=== PATIENT | female | born 1965 | race Caucasian/White ===

== ENCOUNTER 2018-02-13 13:14 | Observation (INO) ==
--- NOTE | 2018-02-13 13:34 | Emergency Department Note ---
ED Disposition Clinical Impression: Nausea vomiting and diarrhea, Ulcerative esophagitis, Coronary artery disease, Intractable vomiting, Hematemesis with nausea Disposition: Still a Patient Condition on Discharge: Fair Instructions: DI for Diarrhea and Traveler's Diarrhea -- Adult, DI for Diarrhea and Traveler's Diarrhea -- Child, DI for Nausea -- Adult, DI for Nausea -- Child Referrals: Provider,Referral, MD [Primary Care Provider] - - Critical Care Critical Care Time: No Attestation: On 02/13/18, the high probability of a clinically significant, sudden or life threatening deterioration of the following system(s) required my full and direct attention, intervention and personal management. The time I documented below is in addition to time spent performing reported procedures but includes the following listed in this critical care notation. Medical Decision Making - Fredrick Inquiry Pt receiving controlled substance: No Fredrick was queried for this patient: No Vital Signs: 02/13/18 13:18 02/13/18 15:12 Temperature 100 F H Temperature Source Oral Pulse Rate [Right Radial] 103 H 100 H Respiratory Rate 18 Blood Pressure [Right Arm] 112/90 117/68 Blood Pressure Mean [Right Arm] 97 84 Blood Pressure Source [Right Arm] Automatic Cuff Automatic Cuff Blood Pressure Position [Right Arm] Sitting Sitting 02 Sat by Pulse Oximetry 96 95 Oxygen Delivery Method Room Air Room Air - Lab Data Lab Results 02/13/18 13:24: WBC 11.9 H, RBC 5.36, Hgb 14.3, Hct 45.2, MCV 84.3, MCH 26.7 L, MCHC 31.7 L, RDW 14.2, Plt Count 378, MPV 6.5 L, Neut % (Auto) 84.6 H, Lymph % (Auto) 7.5 L, [place] % (Auto) 3.8, Eos % (Auto) 3.7, Baso % (Auto) 0.4, Neut # (A uto) 10.0 H, Lymph # (Auto) 0.9, [place] # (Auto) 0.5, Eos # (Auto) 0.4, Baso # (Auto) 0.1 02/13/18 13:24: PT 10.0, INR 0.97, APTT 25.6 02/13/18 13:24: Sodium 141, Potassium 3.7, Chloride 104, Carbon Dioxide 27, Anion Gap 13.7, BUN 17, Creatinine 1.03 H, Estimated Creat Clear 68, Estimated GFR 57 L, Est GFR ( Amer) 69, Glucose 119 H, Calcium 8.5, Total Bilirubin 0.6, AST 15, ALT 44, Alkaline Phosphatase 94, Total Protein 7.0, Albumin 3.3 L, Globulin 3.7 H, Albumin/Globulin Ratio 0.9 L Result diagrams: 02/13/18 13:24 02/13/18 13:24 Orders (Tests/Meds): ED MEDICATIONS Generic Name Dose Route Start Last Admin Trade Name Freq PRN Reason Stop Dose Admin Sodium Chloride 1,000 mls @ 999 mls/hr 02/13/18 13:30 02/13/18 14:14 Sod Chlor 0.9% 1000ml Bag IV 02/13/18 14:30 999 mls/hr .Q1H1M LOLIS Administration Pantoprazole Sodium 80 mg/ 100 mls @ 10 mls/hr 02/13/18 15:00 Sodium Chloride IV 02/16/18 14:59 .Q10H LOLIS Discontinued Medications Generic Name Dose Route Start Last Admin Trade Name Freq PRN Reason Stop Dose Admin Diatrizoate Meglum/Diatrizoate Sod 30 ml 02/13/18 13:26 02/13/18 13:37 Gastrografin 66%-10% 30ml PO 02/13/18 13:27 30 ml ONCE ONE Administration Famotidine 20 mg 02/13/18 13:28 02/13/18 14:13 Pepcid 20mg/2ml Vial IV 02/13/18 13:29 20 mg ONCE ONE Administration Pantoprazole Sodium 80 mg/ 100 mls @ 10 mls/hr 02/13/18 14:28 02/13/18 14:12 Sodium Chloride IV 02/16/18 14:27 10 mls/hr .Q10H LOLIS Administration Pantoprazole Sodium 80 mg/ 100 mls @ 100 mls/hr 02/13/18 13:28 02/13/18 14:48 Sodium Chloride IV 02/13/18 14:27 100 mls/hr ONCE ONE Administration Iopamidol 75 ml 02/13/18 13:55 02/13/18 14:01 [id number]; 75ml Vial IV 02/13/18 13:56 75 ml ONCE ONE Administration Protocol Ondansetron HCl 4 mg 02/13/18 13:28 02/13/18 14:13 Zofran 4mg/2ml Vial IV 02/13/18 13:29 4 mg ONCE ONE Administration Promethazine HCl 12.5 mg 02/13/18 14:42 Phenergan 25mg/Ml 1ml Vial IV 02/13/18 14:43 ONCE ONE Sodium Chloride 10 ml 02/13/18 13:55 02/13/18 14:01 Rad-Saline Flush 10ml Syringe IV 02/13/18 13:56 10 ml ONCE ONE Administration Sodium Chloride 25 ml 02/13/18 14:42 Sod Chlor 0.9% 25ml Bag IV 02/13/18 14:43 ONCE ONE ORDERS Category Date Time Status CT abdomen pelvis w con Stat Cat Scan 02/13/18 13:26 Taken Diarrhea Panel, PCR Stat Lab 02/13/18 13:30 Ordered Medical Decision Narrative: The patient vomited her contrast obtained a CT scan that was negative for loss of vision or rupture positive for esophagitis and distal esophageal thickening prominent lymph nodes. The patient remained nauseous so I contacted Dr. lizbet suttno agreed to admit the patient for medical management. Nausea/Vomiting/Diarrhea HPI - General Chief complaint: Nausea/Vomiting/Diarrhea Stated complaint: soa, juliauaus Time Seen by Provider: 02/13/18 13:20 Mode of Arrival: Ambulatory Limitations: No Limitations Description of Symptoms (Recalled from ER Triage Doc. by RN): pt states she has been fighting pneumonia and bronchitis since december and has been seen by [facility] twice and pcp once, pt states she also has been seen by her gastro dr due to ulcerated/thin/herniated esophagus and to return to er for vomiting. pt states she started vomiting yesterday. - History of Present Illness HPI Narrative: 52 years old white female with history of coronary artery disease, chronic bronchitis and ulcerative esophagitis. Yesterday she developed fever chills followed by vomiting x6 and diarrhea x6.. They she was unable to keep her medications down to continue to have vomiting in the last 2 episodes contain blood in them she became concerned about her esophagus and came to the ED. Denies having chest pain palpitations shortness of breath dizziness lightheadedness weakness or loss of conscious. She denies having melanotic stool or bleeding per rectum. She denies having dysuria hematuria or frequency. MD complaint: nausea, vomiting, diarrhea Onset (ago): day(s) Description of Vomiting: watery, blood-streaked Description of Diarrhea: water Associated Abdominal Pain: No Relieving factors: none Exacerbating factors: none Associated symptoms: fever/chills, nausea/vomiting - Related Data Previous Rx's Medication Instructions Recorded azithromycin 250 mg tablet 250 mg PO .COMPLEX #6 tab 01/20/18 benzonatate 100 mg capsule 100 mg PO TID PRN #10 cap 01/20/18 prednisone 20 mg tablet 20 mg PO BID 5 Days #10 tab 01/20/18 Allergies Allergy/AdvReac Type Severity Reaction Status Date / Time No Known Allergies Allergy Verified 02/13/18 13:30 [facility] History - Hepatitis A Screen Drug use history?: No High risk sexual behaviors?: No History of sexually transmitted infection?: No Currently employed?: No Childcare worker?: No Do you have indoor plumbing?: Yes Do you have electricity?: Yes Attestation statement:: This patient has been screened for Hepatitis A risk factors. I have reviewed the patient's past medical history: Yes Medical History: Reports:: Anxiety, Coronary Artery Disease, Gastroesophageal Reflux Disease(GERD), Hiatal Hernia, Hyperlipidemia, Hypertension Denies:: Cancer, Diabetes Mellitus Type 1, Diabetes Mellitus Type 2, MRSA Other Medical History: Reports: Anemia Amputation: No Fractures: No - Social History Smoking Status: Never smoker Alcohol Intake: never Alcohol Intake Frequency:: 0-2 drinks per day Substance Use Type: denies use - Psychiatric History Expresses thoughts of harming self/others: None Suicide Plan Description: No Plan Pschychiatric History:: Reports:: Anxiety Family Hx:: No significant family history ROS Obtained: Yes All systems reviewed & no additional complaints Physical Exam - General General appearance: alert, in no apparent distress - Head Head exam: atraumatic, normocephalic, normal inspection - Eye Eye exam: Present: normal appearance, PERRL, EOMI. Absent: scleral icterus, nystagmus - ENT ENT exam: Present: normal exam, normal oropharynx, mucous membranes moist, TM's normal bilaterally, normal external ear exam, other (She does have yellow malaligned teeth. ) - Neck Neck exam: Present: normal inspection, full ROM, trachea midline. Absent: tenderness, meningismus, lymphadenopathy - Chest Chest inspection: Present: normal inspection, symmetric chest wall rise. Absent: tenderness - Respiratory Respiratory exam: Present: normal lung sounds bilaterally. Absent: respiratory distress, wheezes, stridor - Cardiovascular Cardiovascular exam: Present: regular rate, normal rhythm, normal heart sounds. Absent: JVD - Abdominal Exam Abdominal exam: Present: soft, normal bowel sounds. Absent: distention, tenderness, guarding, rebound, rigidity - External exam: Present: normal external exam - Extremities Exam Extremities exam: Present: normal inspection, full ROM, normal capillary refill. Absent: calf tenderness - Back Exam Back exam: Present: normal inspection. Absent: tenderness, CVA tenderness (R), CVA tenderness (L), vertebral tenderness - Neurological Exam Neurological exam: Present: alert, oriented X3, CN II-XII intact, motor sensory deficit - Psychiatric Psychiatric exam: Present: normal affect, normal mood - Skin Skin exam: Present: warm, dry, intact, normal color - Lymphatic Lymphatic Findings: no adenopathy
[2018-02-13 13:43] LABS: Basophils # 0.1 K/mm3 (0-0.2); Basophils % 0.4 % (0.1-2.0); Eosinophils # 0.4 K/mm3 (0.0-0.4); Eosinophils % 3.7 % (0.1-12.0); Hematocrit 45.2 % (37.0-47.0); Hemoglobin 14.3 g/dL (12.2-16.2); Lymphocytes # 0.9 K/mm3 (0.7-4.5); Lymphocytes % 7.5 % (10-50); Mean Corpuscular HGB Conc 31.7 g/dL (31.8-35.4); Mean Corpuscular Hemoglobin 26.7 pg (27.0-31.2); Mean Corpuscular Volume 84.3 fl (81-99); Mean Platelet Volume 6.5 fl (7.4-10.4); Monocytes # 0.5 K/mm3 (0.1-1.0); Monocytes % 3.8 % (1.7-9.3); Neutrophils % 84.6 % (37.0-80.0); Platelet Count 378 K/mm3 (142-424); Red Blood Count 5.36 M/mm3 (4.20-5.40); Red Cell Distribution Width 14.2 % (11.5-17.5); White Blood Count 11.9 K/mm3 (4.8-10.8)
[2018-02-13 13:48] LABS: Activated Partial Thrombo Time 25.6 seconds (23.6-34.0); INR 0.97 (0.9-1.1)
[2018-02-13 13:57] LABS: Albumin Level 3.3 gm/dL (3.4-5.0); Albumin/Globulin Ratio 0.9 (1.1-1.8); Anion Gap 13.7 mEq/L (5-15); Bilirubin,Total 0.6 mg/dL (0.2-1.0); Calcium 8.5 mg/dL (8.5-10.1); Globulin 3.7 gm/dl (1.3-3.2); Potassium 3.7 mmoL/L (3.5-5.1)
[2018-02-14 06:51] LABS: Basophils % 0.6 % (0.1-2.0); Eosinophils # 0.5 K/mm3 (0.0-0.4); Eosinophils % 7.3 % (0.1-12.0); Hematocrit 38.7 % (37.0-47.0); Lymphocytes # 1.2 K/mm3 (0.7-4.5); Lymphocytes % 18.6 % (10-50); Mean Corpuscular HGB Conc 31.8 g/dL (31.8-35.4); Mean Corpuscular Hemoglobin 26.7 pg (27.0-31.2); Mean Corpuscular Volume 83.8 fl (81-99); Mean Platelet Volume 6.6 fl (7.4-10.4); Monocytes # 0.5 K/mm3 (0.1-1.0); Monocytes % 7.4 % (1.7-9.3); Neutrophils # 4.2 K/mm3 (1.8-7.8); Neutrophils % 66.2 % (37.0-80.0); Platelet Count 294 K/mm3 (142-424); Red Blood Count 4.62 M/mm3 (4.20-5.40); White Blood Count 6.3 K/mm3 (4.8-10.8)
[2018-02-14 06:58] LABS: Anion Gap 11.4 mEq/L (5-15); Calcium 8.1 mg/dL (8.5-10.1); Potassium 3.4 mmoL/L (3.5-5.1)
[2018-02-14 07:20] LABS: Hemoglobin 12.6 g/dL (12.2-16.2)
--- NOTE | 2018-02-14 07:34 | Pharmacy Consult Notes ---
[facility] Pharmacy VTE Monitoring - Patient Demographics Admission date: 02/13/18 Report Date: 02/14/18 Time: 07:34 Allergies/Adverse Reactions: Patient Allergies No Known Allergies Allergy (Verified 02/13/18 13:30) Height: 1.57 m Weight: 66.706 kg Patient Problems: Current Active Problems Nausea vomiting and diarrhea (Acute) Ulcerative esophagitis (Acute) Coronary artery disease (Acute) Intractable vomiting (Acute) Hematemesis with nausea (Acute) - VTE Risk Labs: VTE Related Lab Results Hgb 12.6 g/dL (12.2-16.2) D 02/14/18 06:32 Hct 38.7 % (37.0-47.0) 02/14/18 06:32 Plt Count 294 K/mm3 (142-424) 02/14/18 06:32 PT 10.0 seconds (9.4-11.8) 02/13/18 13:24 INR 0.97 (0.9-1.1) 02/13/18 13:24 APTT 25.6 seconds (23.6-34.0) 02/13/18 13:24 BUN 10 mg/dL (7-18) D 02/14/18 06:32 Creatinine 0.83 mg/dL (0.55-1.02) 02/14/18 06:32 Estimated Creat Clear 85 mL/min (50-200) 02/14/18 06:32 VTE Score: 3 VTE Risk Level: Low Risk - Prophylaxis VTE Prophylaxis Ordered?: Yes Types of VTE Prophylaxis: TEDS Knee High Location of Applied Device: Bilateral Lower Extremeties - VTE Diagnosis Confirmed Treatment or plan recommended: Continue Current Treatment
--- NOTE | 2018-02-14 08:23 | History & Physical Report ---
*Admission Date: 02/13/18 <GeorgeJanice pollard - 02/14/18 08:35> *Chief complaint: nausea and vomiting and diarrhea <GeorgeJanice pollard - 02/14/18 08:35> *History of present illness: Ms. Mcbride is a 52-year-old female with a history of ASCVD, kidney stones, and history of esophageal tear with hemorrhage in 2017. She is followed by Dr. Naayna Blakely who is at the [facility] in gastroenterology. She states she had an EGD done a few weeks ago and had had some nausea and vomiting before the EGD. She then developed a respiratory illness and was seen at the urgent treatment center and given a Z-Gustavo and a steroid injection. She had very little improvement with this and presented to the [facility] on 02/05/18. She was found to have an upper respiratory infection, a left otitis media, bilateral conjunctivitis, and bronchitis. She was started on Levaquin, eyedrops, prednisone, and cough medication as well as an inhaler. She states her respiratory symptoms began improving and she was able to go back to work last Monday. She went to see Dr. Blakely on Monday to review the results of her recent EGD. Dr. Blakely informed her that her esophagus was thinning again and if she had any episodes of nausea and vomiting, she needed to report to the emergency room because she did not want another esophageal tear. On Monday at 3 PM, she began getting nauseated and having stabbing pain in the mid abdomen. By 7 PM on Monday, she began vomiting and having diarrhea. By Monday, she was vomiting small amounts of blood and therefore presented to the emergency room. She was given antiemetics and fluids. She did vomit to the contrast for the CT scan but other than this, has not had any further nausea, vomiting, or diarrhea. She states she feels much better this morning and would like to try some clear liquids. <Janice Haas - 02/14/18 08:35> [facility] [place] History Medical History: Reports:: Anxiety, Coronary Artery Disease, Gastroesophageal Reflux Disease(GERD), Hiatal Hernia, Hyperlipidemia, Hypertension, Migraine Denies:: Cancer, Diabetes Mellitus Type 1, Diabetes Mellitus Type 2, MRSA <Janice Haas - 02/14/18 08:35> Other Medical History: Reports: Anemia <Janice Haas 02/14/18 08:35> Comment: Esophageal tear with hemorrhage 12/06 <Janice Haas 02/14/18 08:35> Other Surgeries: Yes: Cardiac Catheterization, Coronary Stent <Janice Haas 02/14/18 08:35> Amputation: No [facility] 02/14/[facility] 08:35> Fractures: No <Joselito Haasa 02/14/18 08:35> Comment: Cystoscopy with ureteral stent placed 2017, ASD repair, numerous EGD's <Janice Haas 02/14/18 08:35> - *Social History Educational Level: Completed High School <Janice Haas 02/14/18 08:35> Smoking Status: Never smoker <Janice Haas 02/14/18 08:35> Alcohol Intake: former <Joselito Haasa 02/14/18 08:35> Alcohol Intake Frequency:: 0-2 drinks per day <Janice Haas 02/14/18 08:35> Substance Use Type: denies use <WaldoJanice 02/14/18 08:35> Occupational Status: employed <WaldoJanice 02/14/18 08:35> Housing: house <Joselito Haasa 02/14/18 08:35> Household Members: children <Joselito Haasa 02/14/18 08:35> - Psychiatric History Expresses thoughts of harming self/others: None <Janice Haas 02/14/18 08:35> Suicide Plan Description: No Plan <Janice Haas 02/14/18 08:35> Pschychiatric History:: Reports:: Anxiety <Joselito Haasa 02/14/18 08:35> *Family Hx:: Cancer, Hypertension <Joselito Haasa 02/14/18 08:35> Review of Systems - Constitutional Reports chills, Reports fever(s), Reports weakness <Janice Haas 02/14/18 08:35> - Eyes Denies blurry vision, Denies double vision <Janice Haas 02/14/18 08:35> - ENT Reports sore throat, Denies nasal congestion <Janice Haas - 02/14/18 08:35> - *Cardiovascular Denies chest pain, Denies rapid, pounding, or irregular heartbeat <Janice Haas 02/14/18 08:35> - *Respiratory Reports cough, Reports pain with cough, Denies shortness of breath <Janice Haas 02/14/18 08:35> - *Gastrointestinal Reports vomiting blood, Reports loose stools, Reports nausea, Reports vomiting <Janice Haas 02/14/18 08:35> - *Genitourinary Denies difficulty urinating, Denies painful urination <Janice Haas 02/14/18 08:35> - *Musculoskeletal Denies joint pain, Denies body aches <Janice Haas 02/14/18 08:35> - *Neurologic Reports weakness, Denies headache(s), Denies dizziness <Janice Haas 02/14/18 08:35> Meds Home Medications Medication Instructions Recorded Confirmed Type Amlodipine Besylate [Norvasc 5mg 5 mg PO DAILY 02/13/18 02/13/18 History tablet] Aspirin [Aspirin 81mg chewable 81 mg PO DAILY 02/13/18 02/13/18 History tab] Esomeprazole Magnesium [Nexium] 40 mg PO DAILY 02/13/18 02/13/18 History Ferrous Sulfate [Ferrous Sulfate 325 mg PO TID 02/13/18 02/14/18 History 325mg Tablet] Fluticasone Propionate [Flonase 1 spr NS BID 02/13/18 02/13/18 History 50mcg nasal spray 16gm] Isosorbide Mononitrate [Imdur 60mg 60 mg PO DAILY 02/13/18 02/13/18 History ER tablet] Metoprolol Succinate [Toprol XL 25 mg PO DAILY 02/13/18 02/13/18 History 25mg tablet] Montelukast Sodium [Montelukast 10 mg PO HS 02/13/18 02/13/18 History 10mg Tab] Multivitamin [Multivitamins] 1 each PO DAILY 02/13/18 02/13/18 History PARoxetine HCl [Paxil] 40 mg PO DAILY 02/13/18 02/13/18 History RX: Melatonin 3 mg PO HS 02/13/18 02/13/18 History RX: Sucralfate [Carafate 1gm/10mL 1 gm PO TID 02/13/18 02/14/18 History Susp Udc] dimenhyDRINATE [Dramamine] 50 mg PO HSP PRN 02/13/18 02/14/18 History Atorvastatin Calcium [Atorvastatin 80 mg PO HS 02/14/18 02/14/18 History 80mg Tab] Levocetirizine Dihydrochloride 5 mg PO HS 02/14/18 02/14/18 History [Allergy Relief] RX: Acyclovir [Zovirax 400mg 400 mg PO TID 02/14/18 02/14/18 History tablet] RX: Albuterol Sulfate [Proair Hfa 2 puffs INHALATION QIDP PRN 02/14/18 02/14/18 History 90mcg/puff Inh] RX: Benzonatate [Benzonatate 200mg 200 mg PO TIDP PRN 02/14/18 02/14/18 History Cap] <Rachna Pitts - 02/14/18 12:46> Allergies Allergy/AdvReac Type Severity Reaction Status Date / Time No Known Allergies Allergy Verified 02/13/18 13:30 <Rachna Pitts - 02/14/18 12:46> Exam Vital signs and Labs for Last 24 Hours: Temp Pulse Resp BP Pulse Ox 97.7 F 74 16 119/68 94 L 02/14/18 08:00 02/14/18 08:00 02/14/18 08:00 02/14/18 08:00 02/14/18 08:00 Laboratory Results - last 24 hr 02/13/18 13:24: WBC 11.9 H, RBC 5.36, Hgb 14.3, Hct 45.2, MCV 84.3, MCH 26.7 L, MCHC 31.7 L, RDW 14.2, Plt Count 378, MPV 6.5 L, Neut % (Auto) 84.6 H, Lymph % (Auto) 7.5 L, [place] % (Auto) 3.8, Eos % (Auto) 3.7, Baso % (Auto) 0.4, Neut # (Auto) 10.0 H, Lymph # (Auto) 0.9, [place] # (Auto) 0.5, Eos # (Auto) 0.4, Baso # (Auto) 0.1 02/13/18 13:24: PT 10.0, INR 0.97, APTT 25.6 02/13/18 13:24: Sodium 141, Potassium 3.7, Chloride 104, Carbon Dioxide 27, Anion Gap 13.7, BUN 17, Creatinine 1.03 H, Estimated Creat Clear 68, Estimated GFR 57 L, Est GFR ( Amer) 69, Glucose 119 H, Calcium 8.5, Total Bilirubin 0.6, AST 15, ALT 44, Alkaline Phosphatase 94, Total Protein 7.0, Albumin 3.3 L, Globulin 3.7 H, Albumin/Globulin Ratio 0.9 L 02/14/18 06:32: WBC 6.3 D, RBC 4.62, Hgb 12.6 D, Hct 38.7, MCV 83.8, MCH 26.7 L, MCHC 31.8, RDW 14.0, Plt Count 294, MPV 6.6 L, Neut % (Auto) 66.2, Lymph % (Auto) 18.6, [place] % (Auto) 7.4, Eos % (Auto) 7.3, Baso % (Auto) 0.6, Neut # (Auto) 4.2, Lymph # (Auto) 1.2, [place] # (Auto) 0.5, Eos # (Auto) 0.5 H, Baso # (Auto) 0.0 02/14/18 06:32: Sodium 142, Potassium 3.4 L, Chloride 108 H, Carbon Dioxide 26, Anion Gap 11.4, BUN 10 D, Creatinine 0.83, Estimated Creat Clear 85, Estimated GFR 73, Est GFR ( Amer) 88 D, Glucose 94 D, Calcium 8.1 L <Sound,Rachna - 02/14/18 12:46> Temp Pulse Resp BP Pulse Ox 97.7 F 74 16 119/68 94 L 02/14/18 08:00 02/14/18 08:00 02/14/18 08:00 02/14/18 08:00 02/14/18 08:00 Laboratory Results - last 24 hr 02/13/18 13:24: WBC 11.9 H, RBC 5.36, Hgb 14.3, Hct 45.2, MCV 84.3, MCH 26.7 L, MCHC 31.7 L, RDW 14.2, Plt Count 378, MPV 6.5 L, Neut % (Auto) 84.6 H, Lymph % (Auto) 7.5 L, [place] % (Auto) 3.8, Eos % (Auto) 3.7, Baso % (Auto) 0.4, Neut # (Auto) 10.0 H, Lymph # (Auto) 0.9, [place] # (Auto) 0.5, Eos # (Auto) 0.4, Baso # (Auto) 0.1 02/13/18 13:24: PT 10.0, INR 0.97, APTT 25.6 02/13/18 13:24: Sodium 141, Potassium 3.7, Chloride 104, Carbon Dioxide 27, Anion Gap 13.7, BUN 17, Creatinine 1.03 H, Estimated Creat Clear 68, Estimated GFR 57 L, Est GFR ( Amer) 69, Glucose 119 H, Calcium 8.5, Total Bilirubin 0.6, AST 15, ALT 44, Alkaline Phosphatase 94, Total Protein 7.0, Albumin 3.3 L, Globulin 3.7 H, Albumin/Globulin Ratio 0.9 L 02/14/18 06:32: WBC 6.3 D, RBC 4.62, Hgb 12.6 D, Hct 38.7, MCV 83.8, MCH 26.7 L, MCHC 31.8, RDW 14.0, Plt Count 294, MPV 6.6 L, Neut % (Auto) 66.2, Lymph % (Auto) 18.6, [place] % (Auto) 7.4, Eos % (Auto) 7.3, Baso % (Auto) 0.6, Neut # (Auto) 4.2, Lymph # (Auto) 1.2, [place] # (Auto) 0.5, Eos # (Auto) 0.5 H, Baso # (Auto) 0.0 02/14/18 06:32: Sodium 142, Potassium 3.4 L, Chloride 108 H, Carbon Dioxide 26, Anion Gap 11.4, BUN 10 D, Creatinine 0.83, Estimated Creat Clear 85, Estimated GFR 73, Est GFR ( Amer) 88 D, Glucose 94 D, Calcium 8.1 L <Janice Haas - 02/14/18 08:35> I & O for Last 24 hours: Intake & Output 02/12/18 02/13/18 02/14/18 02/15/18 11:59 11:59 11:59 11:59 Intake Total 983 / 983 Balance 983 / 983 Weight 147 lb 1 oz <Rachna Pitts 02/14/18 12:46> Intake & Output 02/11/18 02/12/18 02/13/18 02/14/18 11:59 11:59 11:59 11:59 Intake Total 0 / 0 Balance 0 / 0 Weight 147 lb 1 oz <Janice Haas 02/14/18 08:35> - Constitutional no acute distress [facility] 02/14/18 08:35> - *Routine HEENT Exam Head: Present: normocephalic <[facility] 02/14/18 08:35> Eye: Present: EOMI, PERRL <[facility] 02/14/18 08:35> ENT: Present: mucous membranes dry <[facility] 02/14/18 08:35> - *Routine Neck Exam Present: supple. Absent: lymphadenopathy <[facility] 02/14/18 08:35> - *Routine Respiratory Exam Present: crackles (bibasilar). Absent: wheezes <[facility] 02/14/18 08:35> - *Routine Cardiovascular Exam Present: RRR <[facility] 02/14/18 08:35> - *Routine Abdominal Exam Present: soft, normoactive bowel sounds. Absent: tenderness <[facility] 02/14/18 08:35> - *Routine Extremities Exam Absent: cyanosis, clubbing, edema <[facility] 02/14/18 08:35> - *Routine Skin Exam Present: warm. Absent: rash <[facility] 02/14/18 08:35> - *Routine Neurological Exam Present: alert, oriented X3 <[facility] 02/14/18 08:35> H&P: Result - Impressions Abd CT 1. Hiatal hernia with thickening of the distal esophagus which may be due to reflux esophagitis 2. 15 mm isodensity within the central aspect of the liver. This is nonspecific and could represent liver lesion or focal fatty infiltration. This could be further evaluated with MRI with fat suppression. At the least would recommend a follow-up CT scan in 3 months without contrast. 3. Scattered small lymph nodes in the abdomen nonspecific but may be seen with mesenteric adenitis <Janice Haas - 02/14/18 08:35> Assessment and Plan (1) Hematemesis with nausea Current visit: Yes Status: Acute Category: Medical Code(s): K92.0 - Hematemesis (2) Intractable vomiting Current visit: Yes Status: Acute Category: Medical Code(s): R11.10 - Vomiting, unspecified (3) Nausea vomiting and diarrhea Current visit: Yes Status: Acute Category: Medical Code(s): R11.2 - Nausea with vomiting, unspecified; R19.7 - Diarrhea, unspecified (4) Coronary artery disease Current visit: Yes Status: Chronic Category: Medical Code(s): I25.10 - Atherosclerotic heart disease of [place] coronary artery without angina pectoris (5) Ulcerative esophagitis Current visit: Yes Status: Chronic Category: Medical Code(s): K22.10 - Ulcer of esophagus without bleeding <Janice Haas - 02/14/18 08:36> (1) Hematemesis with nausea Current visit: Yes Status: Acute Category: Medical Code(s): K92.0 - Hematemesis (2) Intractable vomiting Current visit: Yes Status: Acute Category: Medical Code(s): R11.10 - Vomiting, unspecified (3) Nausea vomiting and diarrhea Current visit: Yes Status: Acute Category: Medical Code(s): R11.2 - Nausea with vomiting, unspecified; R19.7 - Diarrhea, unspecified (4) Coronary artery disease Current visit: Yes Status: Chronic Category: Medical Code(s): I25.10 - Atherosclerotic heart disease of [place] coronary artery without angina pectoris (5) Ulcerative esophagitis Current visit: Yes Status: Chronic Category: Medical Code(s): K22.10 - Ulcer of esophagus without bleeding <Rachna Pitts - 02/14/18 12:46> - Assessment and plan all Dx Assessment and Plan for all problems:: Patient CT image showed jose alejandro-peoples tear that is minor. Discussed with patient. Tolerated full diet, will discharge home today with Carafate and zofran. <Rachna Pitts 02/14/18 12:46> Patient's CT has been reviewed. It suggests the possibility of mesenteric adenitis. The patient also has esophagitis and an abnormality in the liver. She may need repeat CT in 3 months versus an MRI. Will discuss with Dr. Pitts. Her symptoms have resolved and she is feeling much better today. Will advance diet to a clear liquid diet. May be able to discharge later on today. <Janice Haas - 02/14/18 08:37>
--- NOTE | 2018-02-15 13:27 | Discharge Summary ---
General - General Admission date:: 02/13/18 Discharge date: 02/16/18 HPI HPI: Ms. Mcbride is a 52-year-old female with a history of ASCVD, kidney stones, and history of esophageal tear with hemorrhage in 2017. She is followed by Dr. Nayana Blakely who is at the [facility] in gastroenterology. She states she had an EGD done a few weeks ago and had had some nausea and vomiting before the EGD. She then developed a respiratory illness and was seen at the urgent treatment center and given a Z-Pack and a steroid injection. She had very little improvement with this and presented to the [facility] on 02/05/18. She was found to have an upper respiratory infection, a left otitis media, bilateral conjunctivitis, and bronchitis. She was started on Levaquin, eyedrops, prednisone, and cough medication as well as an inhaler. She states her respiratory symptoms began improving and she was able to go back to work last Monday. She went to see Dr. Blakely on Monday to review the results of her recent EGD. Dr. Blakely informed her that her esophagus was thinning again and if she had any episodes of nausea and vomiting, she needed to report to the emergency room because she did not want another esophageal tear. On Monday at 3 PM, she began getting nauseated and having stabbing pain in the mid abdomen. By 7 PM on Monday, she began vomiting and having diarrhea. By Monday, she was vomiting small amounts of blood and therefore presented to the emergency room. She was given antiemetics and fluids. She did vomit the contrast for the CT scan but other than this, has not had any further nausea, vomiting, or diarrhea. She states she feels much better this morning and would like to try some clear liquids. Hospital Course Hospital Course: The patient's CT showed the possibility of mesenteric adenitis, esophagitis, a minor jose alejandro-peoples tear, and an abnormal isodensity within the liver. Radiology felt the density could be further evaluated with an MRI or a f/u CT in 3 months without constrast. She had no further vomiting. The patient's diet was advanced and she tolerated this well. She was stable to be discharged home on carafate and zofran. Objective Vital signs: Temp Pulse Resp BP Pulse Ox 97.7 F 74 16 119/68 94 L 12/26/18 08:00 02/14/18 08:00 02/14/18 08:00 02/14/18 08:00 02/14/18 08:00 Narrative: - Constitutional no acute distress - *Routine HEENT Exam Head: Present: normocephalic Eye: Present: EOMI, PERRL ENT: Present: mucous membranes dry - *Routine Neck Exam Present: supple. Absent: lymphadenopathy - *Routine Respiratory Exam Present: crackles (bibasilar). Absent: wheezes - *Routine Cardiovascular Exam Present: RRR - *Routine Abdominal Exam Present: soft, normoactive bowel sounds. Absent: tenderness - *Routine Extremities Exam Absent: cyanosis, clubbing, edema - *Routine Skin Exam Present: warm. Absent: rash - *Routine Neurological Exam Present: alert, oriented X3 DS: Diagnosis - Discharge Diagnosis (1) Hematemesis with nausea Status: Acute (2) Intractable vomiting Status: Acute (3) Nausea vomiting and diarrhea Status: Acute (4) Coronary artery disease Status: Chronic (5) Ulcerative esophagitis Status: Chronic Discharge Plan - Patient Discharge Instructions ACTIVITY: Continue current activity DIET: continue same diet Additional Instructions: Patient is excused from work until next Monday. Patient Instructions: DI for Nausea -- Adult - Follow up Plan Follow up with: Rachna Pitts MD [Staff Physician] - 1 week Disposition: Home, Self-Jail Medications: Home Medications Medication Instructions Recorded Confirmed Type Amlodipine Besylate [Norvasc 5mg 5 mg PO DAILY 02/13/18 02/13/18 History tablet] Aspirin [Aspirin 81mg chewable 81 mg PO DAILY 02/13/18 02/13/18 History tab] Esomeprazole Magnesium [Nexium] 40 mg PO DAILY 02/13/18 02/13/18 History Ferrous Sulfate [Ferrous Sulfate 325 mg PO TID 02/13/18 02/14/18 History 325mg Tablet] Fluticasone Propionate [Flonase 1 spr NS BID 02/13/18 02/13/18 History 50mcg nasal spray 16gm] Isosorbide Mononitrate [Imdur 60mg 60 mg PO DAILY 02/13/18 02/13/18 History ER tablet] Melatonin 3 mg PO HS 02/13/18 02/13/18 History Metoprolol Succinate [Toprol XL 25 mg PO DAILY 02/13/18 02/13/18 History 25mg tablet] Montelukast Sodium [Montelukast 10 mg PO HS 02/13/18 02/13/18 History 10mg Tab] Multivitamin [Multivitamins] 1 each PO DAILY 02/13/18 02/13/18 History PARoxetine HCl [Paxil] 40 mg PO DAILY 02/13/18 02/13/18 History Sucralfate [Carafate 1gm/10mL Susp 1 gm PO TID 02/13/18 02/14/18 History Udc] dimenhyDRINATE [Dramamine] 50 mg PO HSP PRN 02/13/18 02/14/18 History Acyclovir [Zovirax 400mg tablet] 400 mg PO TID 02/14/18 02/14/18 History Albuterol Sulfate [Proair Hfa 2 puffs INHALATION QIDP PRN 02/14/18 02/14/18 History 90mcg/puff Inh] Atorvastatin Calcium [Atorvastatin 80 mg PO HS 02/14/18 02/14/18 History 80mg Tab] Benzonatate [Benzonatate 200mg Cap] 200 mg PO TIDP PRN 02/14/18 02/14/18 History Levocetirizine Dihydrochloride 5 mg PO HS 02/14/18 02/14/18 History [Allergy Relief] Ondansetron HCl [Zofran 4mg Tab] 4 mg PO DAILY #15 tab 02/14/18 Rx Sucralfate [Carafate] 1 gm PO BID #60 oral.susp 02/14/18 Rx Prescriptions/Medication Reconciliation: New Ondansetron HCl [Zofran 4mg Tab] 4 mg PO DAILY #15 tab Sucralfate [Carafate] 1 gm PO BID #60 oral.susp Continue Metoprolol Succinate [Toprol XL 25mg tablet] 25 mg PO DAILY Isosorbide Mononitrate [Imdur 60mg ER tablet] 60 mg PO DAILY Fluticasone Propionate [Flonase 50mcg nasal spray 16gm] 1 spr NS BID Ferrous Sulfate [Ferrous Sulfate 325mg Tablet] 325 mg PO TID dimenhyDRINATE [Dramamine] 50 mg PO HSP PRN PRN Reason: Nausea Aspirin [Aspirin 81mg chewable tab] 81 mg PO DAILY Sucralfate [Carafate 1gm/10mL Susp Udc] 1 gm PO TID PARoxetine HCl [Paxil] 40 mg PO DAILY Multivitamin [Multivitamins] 1 each PO DAILY Melatonin 3 mg PO HS Esomeprazole Magnesium [Nexium] 40 mg PO DAILY Albuterol Sulfate [Proair Hfa 90mcg/puff Inh] 2 puffs INHALATION QIDP PRN PRN Reason: Shortness Of Breath Atorvastatin Calcium [Atorvastatin 80mg Tab] 80 mg PO HS Levocetirizine Dihydrochloride [Allergy Relief] 5 mg PO HS Benzonatate [Benzonatate 200mg Cap] 200 mg PO TIDP PRN PRN Reason: Cough Montelukast Sodium [Montelukast 10mg Tab] 10 mg PO HS Amlodipine Besylate [Norvasc 5mg tablet] 5 mg PO DAILY Acyclovir [Zovirax 400mg tablet] 400 mg PO TID
== END 2018-02-14 13:40 | disposition home or self-care (01) ==
LOC: 2ND 13:14 → ER 13:14 → 2ND 16:53
PROVIDERS: ADMIT Emergency Medicine; ATTEND Emergency Medicine
CPT/HCPCS: 36415; 74177; 80048; 80053; 85025; 85610; 85730; 96365; 96366; 99284; G0378; J2405; Q9967

== ENCOUNTER → 2018-05-18 15:11 | Outpatient (CLI) | payer OTHER, SELFPAY ==
--- NOTE | 2018-05-18 15:22 | CT_ITS ---
CT abdomen pelvis wo con CLINICAL INDICATION: Follow-up liver lesion ITS.REASON: GASTRIC STRESS ULCER,LIVER LESION ORDERING PHYSICIAN: Rachna Pitts MD PATIENT AGE: 52 years COMPARISON: 02/13/2018 TECHNIQUE: Axial images obtained with sagittal and coronal reformats. All CT scans at the facility use one or more dose reduction, viz: automated exposure control, ma/kV adjustment per patient size (including targeted exams where dose is matched to indication, i.e. head), or iterative reconstruction technique. PROCEDURE: Oral Contrast: None IV Contrast: None . FINDINGS: There is a moderate-sized hiatal hernia. Atrial septal closure device once again noted. There remains an isodensity in the mid aspect of the liver measuring approximately 13 mm not significant changed and may represent a small cyst. No new liver lesions are evident. Spleen, adrenal glands, pancreas, gallbladder, and kidneys have an unremarkable unenhanced appearance. There is bilateral renal lipomatosis somewhat more prominent on the left as an incidental finding. There are scattered small lymph nodes in the mesentery's are nonspecific and not significant changed. No intestinal obstruction or free air. No evidence of appendicitis or diverticulitis. No acute bony anomalies are evident. IMPRESSION: 1. Overall no change in the hypodense liver lesion possibly due to a cyst. 2. Moderate-sized hiatal hernia. 3. Other nonacute findings as described above
== END ==
PROVIDERS: PCP Family Medicine; Visit Provider Emergency Medicine
DX: K25.9 Gastric ulcer, unspecified as acute or chronic, without hemorrhage or perforation (principal); K76.9 Liver disease, unspecified
CPT/HCPCS: 74176

== ENCOUNTER → 2018-06-15 09:27 | Outpatient (CLI) | payer OTHER, SELFPAY ==
--- NOTE | 2018-06-15 09:31 | XR_ITS ---
XR chest 2V HISTORY: Chest pain ITS.REASON: COSTOCHONDRITIS ORDERING PHYSICIAN: Luann Kang APRN PATIENT AGE: 52 years COMPARISON: 02/25/2013 FINDINGS: The cardiomediastinal silhouette and pulmonary vascularity are within normal limits. There is a mitral valve prosthesis present The lungs are clear without infiltrates, suspicious nodules, or pleural effusions. No acute bony abnormalities. IMPRESSION: No acute finding
== END ==
PROVIDERS: PCP Family Medicine; Visit Provider Nurse Practitioner
DX: M94.0 Chondrocostal junction syndrome [Tietze] (principal)
CPT/HCPCS: 71046

== ENCOUNTER 2019-08-05 06:00 | Emergency (ER) | payer OTHER, SELFPAY ==
--- NOTE | 2019-08-05 | ECG_ITS ---
APPROVED REPORT Exam: Resting ECG HR:96 bpm ECG Measurements Heart Rate 96 AXES LA 138 P 50 QRSd 124 QRS -29 QT 394 T 52 QTc 497 <Conclusion> Normal sinus rhythm Nonspecific intraventricular conduction delay Borderline ECG Electronically signed by : Richy Peralta, 08/07/2019 17:10:14
[2019-08-05 06:07] VITALS: BP 144/95; PULSE 105; RESP 22; TEMP 37.3; O2SAT 100; BMI 24.7
--- NOTE | 2019-08-05 06:13 | XR_ITS ---
PROCEDURE: XR CHEST 2V CLINICAL HISTORY: SOA Shortness of air, heart disease COMPARISON: CXR CHEST(2 VIEWS-NOT PORTABLE) from 02/25/2013 FINDINGS: Normal heart size. Coronary artery stents are present. There is evidence of old granulomatous disease. No lobar consolidation or collapse. Mitral valve prosthesis is present. No acute bony findings IMPRESSION: As above, no acute finding Dictated by: Michael Perdomo MD 08/05/2019 07:51 Electronically signed by Michael Perdomo MD in [place] 08/05/2019 07:51
[2019-08-05 06:30] LABS: Microscopic, Urine URINE MICROSCOPIC (MICROSCOPIC)
[2019-08-05 06:32] LABS: ABG Base Excess -1.5 mmol/L (-2.4-2.3); ABG HCO3 21.7 mmhg (22.0-26.0); ABG Oxygen Saturation 98 % (90-100); ABG PCO2 28.6 mmhg (35.0-45.0); ABG PO2 105.1 mmhg (80-100); ABG TCO2 22.6 mmhg (23-27)
[2019-08-05 06:32] LABS: Basophils # 0.1 K/mm3 (0-0.2); Basophils % 0.6 % (0.1-2.0); Eosinophils # 0.3 K/mm3 (0.0-0.4); Eosinophils % 2.7 % (0.1-12.0); Hematocrit 29.2 % (37.0-47.0); Hemoglobin 9.9 g/dL (12.2-16.2); Lymphocytes # 1.7 K/mm3 (0.7-4.5); Lymphocytes % 17.7 % (10-50); Mean Corpuscular Hemoglobin 27.6 pg (27.0-31.2); Mean Corpuscular Volume 81.1 fl (81-99); Mean Platelet Volume 7.1 fl (7.4-10.4); Monocytes # 0.4 K/mm3 (0.1-1.0); Monocytes % 4.4 % (1.7-9.3); Neutrophils # 7.3 K/mm3 (1.8-7.8); Neutrophils % 74.5 % (37.0-80.0); Platelet Count 383 K/mm3 (142-424); White Blood Count 9.7 K/mm3 (4.8-10.8)
[2019-08-05 06:33] LABS: Appearance,Urine CLEAR (Clear); Blood, Urine 1+ (Negative); Color,Urine YELLOW (Yellow); Glucose,Urine (UA) Negative (Negative); Ketones,Urine Negative (Negative); Leukocyte Esterase,Urine TRACE (Negative); Nitrate,Urine Negative (Negative); Protein,Urine TRACE (Negative); Specific Gravity, Urine >= 1.030 (1.005-1.030); Urobilinogen,Urine 0.2 EU/dl (0.2)
[2019-08-05 06:33] LABS: Allen's Test ACCEPTABLE; Oxygen RA %
[2019-08-05 06:34] LABS: Chloride 106 mmol/L (98-107); Potassium 3.4 mmoL/L (3.5-5.1); Sodium 137 mmol/L (136-145)
[2019-08-05 06:34] LABS: Source Right Radial
[2019-08-05 06:36] LABS: Blood Urea Nitrogen 10 mg/dl (7-17); Creatinine Clearance Estimated 91 mL/min (50-200); Estimated Glomerular Filt Rate 88 ml/min (>60); GFR (African American) 106 ML/MIN (>60)
[2019-08-05 06:37] LABS: Alanine Aminotransferase 34 U/L (12-78); Albumin Level 3.7 g/dl (3.5-5.0); Albumin/Globulin Ratio 1.3 (1.1-1.8); Alkaline Phosphatase 105 U/L (38-126); Anion Gap 9.4 mEq/L (5-15); Aspartate Amino Transferase 37 U/L (14-36); Bilirubin,Total 0.3 mg/dl (0.2-1.3); Calcium 8.6 mg/dl (8.4-10.2); Carbon Dioxide 25 mmol/L (22.0-30.0); Globulin 2.9 g/dL (1.3-3.2); Glucose 119 mg/dl (74-100); Total Protein,Serum 6.6 g/dl (6.3-8.2)
[2019-08-05 06:40] LABS: Bilirubin,Urine Negative (Negative)
[2019-08-05 06:44] LABS: Bacteria,Urine 1+ /lpf; Calcium Oxalate Crystals,Urine 1+ /lpf
[2019-08-05 06:50] LABS: Troponin I < 0.01 ng/ml (0.00-0.034)
--- NOTE | 2019-08-05 07:18 | HMH.EDSOB ---
ED Disposition Clinical Impression: Hiatal hernia Chest pain Qualifiers: Chest pain type: precordial pain Qualified Code(s): R07.2 - Precordial pain Anemia Qualifiers: Anemia type: unspecified type Qualified Code(s): D64.9 - Anemia, unspecified Disposition: Home, Self-Care Condition on Discharge: Good Instructions: DI for Atypical Chest Pain Additional Instructions: see pcp and follow up Referrals: Sravan Isaacs MD [Primary Care Provider] - - Critical Care Critical Care Time: No Attestation: On 08/05/19, the high probability of a clinically significant, sudden or life threatening deterioration of the following system(s) required my full and direct attention, intervention and personal management. The time I documented below is in addition to time spent performing reported procedures but includes the following listed in this critical care notation. Medical Decision Making - Medical Records Medical records reviewed: Yes: I reviewed the patient's medical records. - Fredrick Inquiry Pt receiving controlled substance: No Vital Signs: 08/05/19 06:07 08/05/19 07:45 Temperature 99.2 F Temperature Source Oral Pulse Rate [Right] 105 H 80 Respiratory Rate 22 16 Blood Pressure [Right Arm] 144/95 H 128/71 Blood Pressure Mean [Right Arm] 111 90 Blood Pressure Source [Right Arm] Automatic Cuff Blood Pressure Position [Right Arm] Sitting Sitting 02 Sat by Pulse Oximetry 100 98 Oxygen Delivery Method Room Air Room Air - Lab Data Lab results reviewed: Yes: I reviewed the patient's lab results. Lab Results 08/05/19 06:10: Urine Color Yellow, Urine Appearance Clear, Urine pH 6.0, Ur Specific [place] >= 1.030, Urine Protein Trace, Urine Glucose (UA) Negative, Urine Ketones Negative, Urine Blood 1+, Urine Nitrate Negative, Urine Bilirubin Negative, Urine Urobilinogen 0.2, Ur Leukocyte Esterase Trace, Urine RBC 3-5, Urine WBC 5-10, Ur Squamous Epith Cells 5-10, Calcium Oxalate Crystal 1+, Urine Bacteria 1+ 08/05/19 06:10: WBC 9.7, RBC 3.60 L, Hgb 9.9 L, Hct 29.2 L, MCV 81.1, MCH 27.6, MCHC 34.0, RDW 16.0, Plt Count 383, MPV 7.1 L, Neut % (Auto) 74.5, Lymph % (Auto) 17.7, [place] % (Auto) 4.4, Eos % (Auto) 2.7, Baso % (Auto) 0.6, Neut # (Auto) 7.3, Lymph # (Auto) 1.7, [place] # (Auto) 0.4, Eos # (Auto) 0.3, Baso # (Auto) 0.1 08/05/19 06:10: Sodium 137, Potassium 3.4 L, Chloride 106, Carbon Dioxide 25, Anion Gap 9.4, BUN 10, Creatinine 0.70, Estimated Creat Clear 91, Estimated GFR 88, Est GFR ( Amer) 106, Glucose 119 H, Calcium 8.6, Total Bilirubin 0.3, AST 37 H, ALT 34, Alkaline Phosphatase 105, Troponin I < 0.01, Total Protein 6.6, Albumin 3.7, Globulin 2.9, Albumin/Globulin Ratio 1.3 08/05/19 06:13: Specimen Source Right radial, O2 % Ra, ABG pH 7.50 H, ABG pCO2 28.6 L, ABG pO2 105.1 H, ABG HCO3 21.7 L, ABG Total CO2 22.6 L, ABG O2 Saturation 98, ABG Base Excess -1.5, Michael Test Acceptable 08/05/19 09:26: Troponin I < 0.01 Result diagrams: 08/05/19 06:10 08/05/19 06:10 Orders (Tests/Meds): ED MEDICATIONS Generic Name Dose Route Start Last Admin Trade Name Freq PRN Reason Stop Dose Admin Sodium Chloride 8 ml 08/05/19 09:04 Sodium Chloride 0.9% 10ml Vial IV 09/04/19 09:03 NEEDED PRN dilute pepcid Discontinued Medications Generic Name Dose Route Start Last Admin Trade Name Freq PRN Reason Stop Dose Admin Famotidine 20 mg 08/05/19 09:04 08/05/19 09:12 Pepcid 20mg/2ml Vial IV 08/05/19 09:05 20 mg ONCE ONE Administration Sodium Chloride 1,000 mls @ 999 mls/hr 08/05/19 07:00 08/05/19 07:02 Sod Chlor 0.9% 1000ml Bag IV 08/05/19 08:00 999 mls/hr .Q1H1M LOLIS Administration Ioversol 70 ml 08/05/19 08:16 08/05/19 08:17 Rad-Optiray 350 100ml Vial IV 08/05/19 08:17 70 ml ONCE ONE Administration Protocol Methylprednisolone Sodium Succinate 125 mg 08/05/19 06:56 08/05/19 07:02 Solu-Medrol 125mg/2ml Vial IV 08/05/19 06:57 125 mg ONCE ONE A
--- NOTE | 2019-08-05 07:26 | CT_ITS ---
PROCEDURE: CT ANGIO CHEST CLINCIAL INDICATION: sob Shortness of air, chest tightness the COMPARISON: No exams were available for comparison TECHNIQUE: IV Contrast: 70ML OPTIRAY 350 Axial images obtained with sagittal and coronal reformats. All CT scans at the facility use one or more dose reduction, viz: automated exposure control, ma/kV adjustment per patient size (including targeted exams where dose is matched to indication, i.e. head), or iterative reconstruction technique. FINDINGS: HEART AND MEDIASTINAL STRUCTURES: No evidence of pulmonary embolus, aortic aneurysm, or aortic dissection. There are coronary artery stents and or calcifications noted. There is an implantable cardiac device between the right and left atria. There is thickening of the gastroesophageal junction. This is nonspecific and may only be due to nondistention. Neoplasm or esophagitis is also considered in the differential diagnosis. Barium swallow or upper endoscopy may provide further evaluation. There is air present within the esophagus throughout its length with an air-fluid level in the mid esophageal region. Hiatal hernia is noted. LUNGS AND PLEURAL SPACES: Atelectatic or fibrotic change in the lung bases. BONY STRUCTURES: No acute bony abnormalities apparent. UPPER ABDOMEN: Hiatal hernia with thickened distal esophagus. There are few scattered small nodes in the periportal region ADDITIONAL FINDINGS: No other significant abnormalities. IMPRESSION: 1. No evidence of pulmonary embolus 2. Hiatal hernia with thickened distal esophagus with an air-fluid level in the mid esophageal region. Esophagitis with reflux is a consideration. Neoplasm is not excluded. Consider follow-up with nonemergent barium swallow or upper endoscopy. Dictated by: Michael Perdomo MD 08/05/2019 08:55 Electronically signed by Michael Perdomo MD in [place] 08/05/2019 08:55
[2019-08-05 07:45] VITALS: BP 128/71; PULSE 80; RESP 16; O2SAT 98
--- NOTE | 2019-08-05 08:05 | PC.NURSE ---
Pt to rad.
--- NOTE | 2019-08-05 09:16 | PC.NURSE ---
Lab coming down to draw second troponin
[2019-08-05 09:56] LABS: Troponin I < 0.01 ng/ml (0.00-0.034)
[2019-08-05 10:41] VITALS: BP 121/74; PULSE 68; RESP 18; TEMP 36.6; O2SAT 98
== END 2019-08-05 10:43 | disposition home or self-care (01) ==
PROVIDERS: Emergency Provider Emergency Medicine; PCP Family Medicine
DX: K44.9 Diaphragmatic hernia without obstruction or gangrene (principal); F41.9 Anxiety disorder, unspecified; R07.2 Precordial pain; D64.9 Anemia, unspecified; K21.9 Gastro-esophageal reflux disease without esophagitis; R78.5 Finding of other psychotropic drug in blood; I10 Essential (primary) hypertension; G43.709 Chronic migraine without aura, not intractable, without status migrainosus; Z79.899 Other long term (current) drug therapy
CPT/HCPCS: 71046; 71275; 80053; 81001; 82803; 84484; 85025; 93005; 96365; 96375; 99283; Q9967

== ENCOUNTER 2019-08-16 01:06 | Emergency (ER) | payer OTHER, SELFPAY ==
[2019-08-16 01:21] VITALS: BP 116/79; PULSE 108; RESP 16; TEMP 37.2; O2SAT 97; BMI 25.4
--- NOTE | 2019-08-16 01:32 | ECG_ITS ---
APPROVED REPORT Exam: Resting ECG HR:102 bpm ECG Measurements Heart Rate 102 AXES LA 142 P 22 QRSd 130 QRS -47 QT 390 T 66 QTc 508 <Conclusion> Sinus tachycardia Left axis deviation Left bundle branch block Abnormal ECG Electronically signed by : Richy Peralta, 08/19/2019 12:03:42
--- NOTE | 2019-08-16 01:35 | XR_ITS ---
PROCEDURE: XR CHEST 2V CLINICAL HISTORY: generalized weakness COMPARISON: CXR CHEST(2 VIEWS-NOT PORTABLE) from 02/25/2013 XR CHEST 2V from 08/05/2019 CT ANGIO CHEST from 08/05/2019 FINDINGS: Mitral valve prosthesis is present. Lung mendiola are remarkable for a 5 millimeter low dense left lower lobe nodule. Cardiac silhouette, soft tissues, and bony structures are unremarkable. IMPRESSION: Mitral valve prosthesis, 5 millimeter dense left lower lobe nodule Dictated by: Anthony Cardoso 08/16/2019 08:27 Electronically signed by Anthony Cardoso in [place] 08/16/2019 08:27
--- NOTE | 2019-08-16 01:35 | CT_ITS ---
PROCEDURE: CT HEAD/BRAIN WO CON CLINICAL INDICATION: Confusion COMPARISON: No exams were available for comparison TECHNIQUE: Axial images obtained. All CT scans at the facility use one or more dose reduction, viz: automated exposure control, ma/kV adjustment per patient size (including targeted exams where dose is matched to indication, i.e. head), or iterative reconstruction technique. FINDINGS: There is a focal CSF density within the mid pontine white matter. Ventricles, remainder of the brain parenchyma, bony calvarium and sinuses are unremarkable. There is no hemorrhage. IMPRESSION: Remote pontine CVA Dictated by: Anthony Cardoso 08/16/2019 08:24 Electronically signed by Anthony Cardoso in [place] 08/16/2019 08:24
[2019-08-16 01:56] LABS: Basophils # 0.1 K/mm3 (0-0.2); Eosinophils # 0.2 K/mm3 (0.0-0.4); Eosinophils % 2.2 % (0.1-12.0); Hematocrit 31.9 % (37.0-47.0); Hemoglobin 10.2 g/dL (12.2-16.2); Lymphocytes # 1.8 K/mm3 (0.7-4.5); Lymphocytes % 21.8 % (10-50); Mean Corpuscular Hemoglobin 27.5 pg (27.0-31.2); Mean Corpuscular Volume 86.2 fl (81-99); Mean Platelet Volume 7.1 fl (7.4-10.4); Monocytes # 0.6 K/mm3 (0.1-1.0); Monocytes % 6.7 % (1.7-9.3); Neutrophils # 5.7 K/mm3 (1.8-7.8); Neutrophils % 68.3 % (37.0-80.0); Platelet Count 504 K/mm3 (142-424); Red Cell Distribution Width 16.8 % (11.5-17.5); White Blood Count 8.3 K/mm3 (4.8-10.8)
[2019-08-16 02:01] LABS: Alanine Aminotransferase 27 U/L (12-78); Albumin Level 4.3 g/dl (3.5-5.0); Albumin/Globulin Ratio 1.4 (1.1-1.8); Alkaline Phosphatase 93 U/L (38-126); Anion Gap 13.5 mEq/L (5-15); Aspartate Amino Transferase 36 U/L (14-36); Bilirubin,Total 0.4 mg/dl (0.2-1.3); Blood Urea Nitrogen 13 mg/dl (7-17); Calcium 9.7 mg/dl (8.4-10.2); Carbon Dioxide 21 mmol/L (22.0-30.0); Chloride 106 mmol/L (98-107); Creatinine Clearance Estimated 73 mL/min (50-200); Estimated Glomerular Filt Rate 66 ml/min (>60); GFR (African American) 80 ML/MIN (>60); Globulin 3.1 g/dL (1.3-3.2); Glucose 106 mg/dl (74-100); Potassium 3.5 mmoL/L (3.5-5.1); Sodium 137 mmol/L (136-145); Total Protein,Serum 7.4 g/dl (6.3-8.2)
[2019-08-16 02:02] LABS: Acetaminophen < 10 ug/ml (10-30); Ethyl Alcohol < 10 mg/dl (0-10)
[2019-08-16 02:06] LABS: C-Reactive Protein 2.3 mg/L (0-4)
[2019-08-16 02:17] LABS: Microscopic, Urine URINE MICROSCOPIC (MICROSCOPIC)
[2019-08-16 02:29] LABS: Appearance,Urine CLEAR (Clear); Bilirubin,Urine Negative (Negative); Blood, Urine 3+ (Negative); Color,Urine YELLOW (Yellow); Glucose,Urine (UA) Negative (Negative); Ketones,Urine Negative (Negative); Leukocyte Esterase,Urine Negative (Negative); Nitrate,Urine Negative (Negative); PH,Urine 5.5 (5.0-8.5); Protein,Urine TRACE (Negative); Specific Gravity, Urine >= 1.030 (1.005-1.030); Urobilinogen,Urine 0.2 EU/dl (0.2)
[2019-08-16 02:34] LABS: Troponin I < 0.01 ng/ml (0.00-0.034)
[2019-08-16 02:51] LABS: Amorphous Sediment,Urine 2+ /lpf; Bacteria,Urine 1+ /lpf
[2019-08-16 02:58] LABS: Erythrocyte Sedimentation Rate 28 mm/hr (0-30)
--- NOTE | 2019-08-16 02:58 | HMH.EDAMS ---
ED Disposition Clinical Impression: TIA (transient ischemic attack) Anemia Qualifiers: Anemia type: unspecified type Qualified Code(s): D64.9 - Anemia, unspecified Disposition: Home, Self-Care Condition on Discharge: Good Instructions: DI for Altered Mental Status Additional Instructions: call pcp today for follow up Referrals: Sravan Isaacs MD [Primary Care Provider] - - Critical Care Critical Care Time: No Attestation: On 08/16/19, the high probability of a clinically significant, sudden or life threatening deterioration of the following system(s) required my full and direct attention, intervention and personal management. The time I documented below is in addition to time spent performing reported procedures but includes the following listed in this critical care notation. Medical Decision Making - Medical Records Medical records reviewed: Yes: I reviewed the patient's medical records. - Fredrick Inquiry Pt receiving controlled substance: No Vital Signs: 08/16/19 01:21 08/16/19 03:15 08/16/19 03:16 Temperature 99.0 F 99 F Temperature Source Oral Oral Pulse Rate [Right] 108 H 95 H 94 H Respiratory Rate 16 18 Blood Pressure [Right Arm] 116/79 110/53 L 109/62 L Blood Pressure Mean [Right Arm] 91 72 77 Blood Pressure Source [Right Arm] Automatic Cuff Automatic Cuff Automatic Cuff Blood Pressure Position [Right Arm] Sitting Supine Supine 02 Sat by Pulse Oximetry 97 96 97 Oxygen Delivery Method Room Air Room Air Room Air 08/16/19 04:01 Temperature 98.7 F Temperature Source Oral Pulse Rate [Right] 92 H Respiratory Rate Blood Pressure [Right Arm] 101/56 L Blood Pressure Mean [Right Arm] 71 Blood Pressure Source [Right Arm] Automatic Cuff Blood Pressure Position [Right Arm] Supine 02 Sat by Pulse Oximetry 97 Oxygen Delivery Method Room Air - Lab Data Lab results reviewed: Yes: I reviewed the patient's lab results. Lab Results 08/16/19 01:25: Urine Color Yellow, Urine Appearance Clear, Urine pH 5.5, Ur Specific [place] >= 1.030, Urine Protein Trace, Urine Glucose (UA) Negative, Urine Ketones Negative, Urine Blood 3+, Urine Nitrate Negative, Urine Bilirubin Negative, Urine Urobilinogen 0.2, Ur Leukocyte Esterase Negative, Urine RBC 5-10, Urine WBC 3-5, Amorphous Sediment 2+, Urine Bacteria 1+ 08/16/19 01:25: Urine Opiates Screen Negative, Urine Methadone Screen Negative, Ur Barbituates Screen Negative, Ur Phencyclidine Scrn Negative, Ur Amphetamines Screen Negative, U Benzodiazepines Scrn Negative, Urine Cocaine Screen Negative, U Marijuana (THC) Screen Negative 08/16/19 01:40: WBC 8.3, RBC 3.70 L, Hgb 10.2 L, Hct 31.9 L, MCV 86.2, MCH 27.5, MCHC 32.0, RDW 16.8, Plt Count 504 H, MPV 7.1 L, Neut % (Auto) 68.3, Lymph % (Auto) 21.8, [place] % (Auto) 6.7, Eos % (Auto) 2.2, Baso % (Auto) 1.0, Neut # (Auto) 5.7, Lymph # (Auto) 1.8, [place] # (Auto) 0.6, Eos # (Auto) 0.2, Baso # (Auto) 0.1, ESR 28 08/16/19 01:40: Sodium 137, Potassium 3.5, Chloride 106, Carbon Dioxide 21 L, Anion Gap 13.5, BUN 13, Creatinine 0.90, Estimated Creat Clear 73, Estimated GFR 66, Est GFR ( Amer) 80, Glucose 106 H, Calcium 9.7, Total Bilirubin 0.4, AST 36, ALT 27, Alkaline Phosphatase 93, Troponin I < 0.01, C-Reactive Protein 2.3, Total Protein 7.4, Albumin 4.3, Globulin 3.1, Albumin/Globulin Ratio 1.4, Salicylates < 1.0 L, Acetaminophen < 10 L 08/16/19 01:40: Plasma/Serum Alcohol < 10 Result diagrams: 08/16/19 01:40 08/16/19 01:40 Orders (Tests/Meds): ED MEDICATIONS Generic Name Dose Route Start Last Admin Trade Name Freq PRN Reason Stop Dose Admin Sodium Chloride 1,000 mls @ 999 mls/hr 08/16/19 01:45 08/16/19 01:54 Sod Chlor 0.9% 1000ml Bag IV 08/16/19 02:45 999 mls/hr .Q1H1M LOLIS Administration ORDERS Category Date Time Status CT head/brain wo con Stat Cat Scan 08/16/19 01:35 Taken XR chest 2V Stat Exams 08/16/19 01:35 Taken Troponin I Q3H Lab 08/16/19 04:45 Ordered Troponin I Q3H Lab
[2019-08-16 03:12] LABS: Salicylate < 1.0 mg/dL (2.0-20.0)
[2019-08-16 03:12] LABS: Benzodiazepines Screen,Urine Negative ng/ml (<200)
[2019-08-16 03:13] LABS: Amphetamine/Metha Screen,Urine Negative ng/ml (<1000)
[2019-08-16 03:14] LABS: Barbiturates Screen,Urine Negative ng/ml (<200); Cannabinoid Screen,Urine Negative ng/ml (<50)
[2019-08-16 03:15] VITALS: BP 110/53; PULSE 95; O2SAT 96
[2019-08-16 03:15] LABS: Cocaine Screen,Urine Negative ng/ml (<300)
[2019-08-16 03:16] VITALS: BP 109/62; PULSE 94; RESP 18; TEMP 37.2; O2SAT 97
[2019-08-16 03:16] LABS: Methadone Screen,Urine Negative ng/ml (<300); Opiate Screen,Urine Negative ng/ml (<300)
[2019-08-16 03:17] LABS: Phencyclidine Screen,Urine Negative ng/ml (<25)
[2019-08-16 04:01] VITALS: BP 101/56; PULSE 92; TEMP 37.1; O2SAT 97
--- NOTE | 2019-08-16 04:18 | PC.NURSE ---
Dr Haynes consulting Dr Isaacs
[2019-08-16 04:30] VITALS: BP 121/64; PULSE 92; RESP 16; TEMP 37.1; O2SAT 97
== END 2019-08-16 04:41 | disposition home or self-care (01) ==
PROVIDERS: Emergency Provider Emergency Medicine; PCP Family Medicine
DX: R41.82 Altered mental status, unspecified (principal); G45.8 Other transient cerebral ischemic attacks and related syndromes; D64.9 Anemia, unspecified; K21.9 Gastro-esophageal reflux disease without esophagitis; E78.5 Hyperlipidemia, unspecified; I10 Essential (primary) hypertension; F41.9 Anxiety disorder, unspecified; G43.709 Chronic migraine without aura, not intractable, without status migrainosus; Z79.899 Other long term (current) drug therapy
CPT/HCPCS: 70450; 71046; 80053; 80305; 80329; 81001; 84484; 85025; 85651; 86140; 87040; 93005; 96365; 99284

== ENCOUNTER → 2020-01-27 15:49 | Outpatient (CLI) | payer OTHER, SELFPAY ==
--- NOTE | 2020-01-27 15:57 | XR_ITS ---
PROCEDURE: XR CHEST PORTABLE CLINICAL HISTORY: COVID OUTPATIENT Cough and sore throat COMPARISON: CR CXR CHEST(2 VIEWS-NOT PORTABLE) from 02/25/2013 CR XR CHEST 2V from 08/05/[address] ANGIO CHEST from 08/05/2019 CR XR CHEST 2V from 08/16/2019 FINDINGS: Mitral valve prosthesis is present. Normal heart size. Lungs are clear. No acute bony abnormalities. IMPRESSION: No acute findings. Dictated by: Michael Perdomo MD 01/27/2020 16:41 Michael Perdomo MD in [place] 01/27/2020 16:41
[2020-01-27 16:49] LABS: Basophils # 0.1 K/mm3 (0-0.2); Eosinophils # 0.3 K/mm3 (0.0-0.4); Eosinophils % 3.5 % (0.1-12.0); Hematocrit 42.7 % (37.0-47.0); Hemoglobin 14.3 g/dL (12.2-16.2); Lymphocytes # 2.2 K/mm3 (0.7-4.5); Lymphocytes % 30.5 % (10-50); Mean Corpuscular HGB Conc 33.5 g/dL (31.8-35.4); Mean Corpuscular Hemoglobin 27.8 pg (27.0-31.2); Mean Platelet Volume 7.1 fl (7.4-10.4); Monocytes # 0.4 K/mm3 (0.1-1.0); Neutrophils # 4.4 K/mm3 (1.8-7.8); Platelet Count 348 K/mm3 (142-424); Red Blood Count 5.14 M/mm3 (4.20-5.40); Red Cell Distribution Width 14.5 % (11.5-17.5); White Blood Count 7.3 K/mm3 (4.8-10.8)
[2020-01-29 13:43] LABS: Covid-19 Nasal PCR Sendout Lex Not Detected
== END ==
PROVIDERS: PCP Nurse Practitioner; Visit Provider Nurse Practitioner
DX: Z03.818 Encounter for observation for suspected exposure to other biological agents ruled out (principal); J06.9 Acute upper respiratory infection, unspecified; R05 Cough; R06.2 Wheezing
CPT/HCPCS: 36415; 71045; 85025; 87275; 87276; U0004

== ENCOUNTER → 2020-05-25 11:00 | Outpatient (CLI) | payer OTHER, SELFPAY ==
[2020-05-25 11:25] LABS: Basophils # 0.1 K/mm3 (0-0.2); Basophils % 0.8 % (0.1-2.0); Eosinophils # 0.4 K/mm3 (0.0-0.4); Hematocrit 40.9 % (37.0-47.0); Lymphocytes # 2.3 K/mm3 (0.7-4.5); Lymphocytes % 19.5 % (10-50); Mean Corpuscular HGB Conc 31.9 g/dL (31.8-35.4); Mean Corpuscular Hemoglobin 26.6 pg (27.0-31.2); Mean Corpuscular Volume 83.4 fl (81-99); Mean Platelet Volume 6.7 fl (7.4-10.4); Monocytes # 0.6 K/mm3 (0.1-1.0); Monocytes % 5.2 % (1.7-9.3); Neutrophils # 8.5 K/mm3 (1.8-7.8); Neutrophils % 71.6 % (37.0-80.0); Platelet Count 350 K/mm3 (142-424); Red Cell Distribution Width 13.8 % (11.5-17.5); White Blood Count 11.9 K/mm3 (4.8-10.8)
[2020-05-25 15:42] LABS: Strep Scrn Group A (Rapid) Negative (Negative)
== END ==
PROVIDERS: PCP Family Medicine; Visit Provider Nurse Practitioner
DX: Z20.822 Contact with and (suspected) exposure to COVID-19 (principal)
CPT/HCPCS: 36415; 85025; 87430; U0003

== ENCOUNTER → 2020-09-28 11:13 | Outpatient (CLI) | payer OTHER, SELFPAY ==
[2020-09-28 12:57] LABS: Adenovirus,PCR Not Detected (NotDetected); Bordetella Pertussis Not Detected (NotDetected); Chlamydophila Pneumoniae, PCR Not Detected (NotDetected); Coronavirus 19, PCR Not Detected (NotDetected); Coronavirus 229E Not Detected (NotDetected); Coronavirus NL63 Not Detected (NotDetected); Coronavirus OC43 Not Detected (NotDetected); Coronovirus HKU1,PCR Not Detected (NotDetected); Human Metapneumovirus Not Detected (NotDetected); Influenza A, PCR Not Detected (NotDetected); Influenza AH1, 2009 Not Detected (NotDetected); Influenza AH1, PCR Not Detected (NotDetected); Influenza AH3,PCR Not Detected (NotDetected); Influenza B, PCR Not Detected (NotDetected); Mycoplasma Pneumoniae, PCR Not Detected (NotDetected); Parainfluenza 1, PCR Not Detected (NotDetected); Parainfluenza 2, PCR Not Detected (NotDetected); Parainfluenza 3, PCR Not Detected (NotDetected); Parainfluenza 4, PCR Not Detected (NotDetected); Respiratory Syncytial Virus Not Detected (NotDetected); Rhinovirus/Enterovirus Not Detected (NotDetected)
[2020-09-28 13:01] LABS: Basophils # 0.1 K/mm3 (0-0.2); Eosinophils # 0.3 K/mm3 (0.0-0.4); Eosinophils % 3.8 % (0.1-12.0); Hemoglobin 13.3 g/dL (12.2-16.2); Lymphocytes # 2.5 K/mm3 (0.7-4.5); Lymphocytes % 29.2 % (10-50); Mean Corpuscular HGB Conc 34.1 g/dL (31.8-35.4); Mean Corpuscular Hemoglobin 27.4 pg (27.0-31.2); Mean Corpuscular Volume 80.4 fl (81-99); Mean Platelet Volume 7.3 fl (7.4-10.4); Monocytes # 0.5 K/mm3 (0.1-1.0); Neutrophils # 5.1 K/mm3 (1.8-7.8); Platelet Count 317 K/mm3 (142-424); Red Blood Count 4.85 M/mm3 (4.20-5.40); Red Cell Distribution Width 13.5 % (11.5-17.5); White Blood Count 8.4 K/mm3 (4.8-10.8)
[2020-09-28 19:57] LABS: Strep Scrn Group A (Rapid) Negative (Negative)
== END ==
PROVIDERS: PCP Family Medicine; Visit Provider Nurse Practitioner
DX: Z20.822 Contact with and (suspected) exposure to COVID-19 (principal)
CPT/HCPCS: 36415; 85025; 87430; 87581; 87633; 87798

== ENCOUNTER 2020-11-03 23:41 | Emergency (ER) | payer OTHER, SELFPAY ==
[2020-11-03 23:42] VITALS: BP 156/92; PULSE 113; RESP 16; TEMP 36.8; O2SAT 98; BMI 22.8
--- NOTE | 2020-11-04 00:09 | XR_ITS ---
PROCEDURE INFORMATION: Exam: XR Chest Exam date and time: 11/04/2020 12:09 AM Age: 55 years old Clinical indication: Cough and other: Weakness TECHNIQUE: Imaging protocol: XR of the chest. Views: 2 views. COMPARISON: CR XR CHEST PORTABLE 01/27/2020 4:04 PM FINDINGS: Tubes, catheters and devices: Mitral valve prosthesis present. Lungs: No focal consolidation to suggest pneumonia. Pleural spaces: Unremarkable. No pleural effusion. No pneumothorax. Heart/Mediastinum: The cardiomediastinal silhouette appears essentially similar. Bones/joints: Unremarkable. IMPRESSION: No acute findings.
--- NOTE | 2020-11-04 00:11 | ECG_ITS ---
APPROVED REPORT Exam: Resting ECG HR:103 bpm ECG Measurements Heart Rate 103 AXES LA 144 P 45 QRSd 118 QRS -32 QT 386 T 72 QTc 505 Conclusion Sinus tachycardia Right atrial enlargement Left axis deviation Anterior infarct, age undetermined Abnormal ECG Electronically signed by : Richy Peralta MD 11/04/2020 07:27:39
[2020-11-04 00:20] LABS: Coronavirus 19, PCR Not Detected (NotDetected); Influenza A, PCR Not Detected (NotDetected); Influenza B, PCR Not Detected (NotDetected)
[2020-11-04 00:24] LABS: Basophils # 0.1 K/mm3 (0-0.2); Basophils % 1.4 % (0.1-2.0); Eosinophils # 0.3 K/mm3 (0.0-0.4); Eosinophils % 4.2 % (0.1-12.0); Hematocrit 42.1 % (37.0-47.0); Hemoglobin 14.2 g/dL (12.2-16.2); Lymphocytes % 25.7 % (10-50); Mean Corpuscular HGB Conc 33.7 g/dL (31.8-35.4); Mean Corpuscular Hemoglobin 28.1 pg (27.0-31.2); Mean Corpuscular Volume 83.2 fl (81-99); Mean Platelet Volume 6.8 fl (7.4-10.4); Monocytes # 0.5 K/mm3 (0.1-1.0); Monocytes % 6.2 % (1.7-9.3); Neutrophils # 4.8 K/mm3 (1.8-7.8); Neutrophils % 62.5 % (37.0-80.0); Platelet Count 364 K/mm3 (142-424); Red Blood Count 5.06 M/mm3 (4.20-5.40); Red Cell Distribution Width 13.2 % (11.5-17.5); White Blood Count 7.6 K/mm3 (4.8-10.8)
[2020-11-04 00:26] LABS: Chloride 110 mmol/L (98-107); Potassium 3.7 mmoL/L (3.5-5.1); Sodium 141 mmol/L (136-145)
[2020-11-04 00:28] LABS: Amylase 74 U/L (30-110)
[2020-11-04 00:29] LABS: Alanine Aminotransferase 59 U/L (12-78); Albumin Level 4.3 g/dl (3.5-5.0); Albumin/Globulin Ratio 1.3 (1.1-1.8); Alkaline Phosphatase 105 U/L (38-126); Anion Gap 15.7 mEq/L (5-15); Aspartate Amino Transferase 55 U/L (14-36); Bilirubin,Total 0.4 mg/dl (0.2-1.3); Blood Urea Nitrogen 15 mg/dl (7-17); Calcium 9.1 mg/dl (8.4-10.2); Carbon Dioxide 19 mmol/L (22.0-30.0); Creatinine Clearance Estimated 73 mL/min (50-200); Estimated Glomerular Filt Rate 75 ml/min (>60); GFR (African American) 91 ML/MIN (>60); Globulin 3.3 g/dL (1.3-3.2); Glucose 116 mg/dl (74-100); Lipase 101 U/L (23-300); Total Protein,Serum 7.6 g/dl (6.3-8.2)
[2020-11-04 00:32] LABS: Microscopic, Urine URINE MICROSCOPIC (MICROSCOPIC)
[2020-11-04 00:35] LABS: C-Reactive Protein 1.5 mg/L (0-4)
[2020-11-04 00:40] LABS: Appearance,Urine CLOUDY (Clear); Blood, Urine Negative (Negative); Color,Urine DK YELLOW (Yellow); Glucose,Urine (UA) Negative (Negative); Ketones,Urine TRACE (Negative); Leukocyte Esterase,Urine Negative (Negative); Nitrate,Urine Negative (Negative); PH,Urine 5.5 (5.0-8.5); Protein,Urine TRACE (Negative); Specific Gravity, Urine >= 1.030 (1.005-1.030)
--- NOTE | 2020-11-04 00:43 | HMH.EDWEAK ---
ED Disposition Clinical Impression: Weakness Disposition: Home, Self-Care Condition on Discharge: Good Instructions: DI for Muscle Weakness Additional Instructions: call pcp for follow up this am Referrals: Sravan Isaacs MD [Primary Care Provider] - - Critical Care Critical Care Time: No Attestation: On 11/03/20, the high probability of a clinically significant, sudden or life threatening deterioration of the following system(s) required my full and direct attention, intervention and personal management. The time I documented below is in addition to time spent performing reported procedures but includes the following listed in this critical care notation. Medical Decision Making - Medical Records Medical records reviewed: Yes: I reviewed the patient's medical records. - Fredrick Inquiry Pt receiving controlled substance: No Vital Signs: 11/03/20 23:42 Temperature 98.3 F Temperature Source Oral Pulse Rate [Right] 113 H Respiratory Rate 16 Blood Pressure [Right Arm] 156/92 H Blood Pressure Mean [Right Arm] 113 02 Sat by Pulse Oximetry 98 - Lab Data Lab results reviewed: Yes: I reviewed the patient's lab results. Lab Results 11/04/20 00:07: WBC 7.6, RBC 5.06, Hgb 14.2, Hct 42.1, MCV 83.2, MCH 28.1, MCHC 33.7, RDW 13.2, Plt Count 364, MPV 6.8 L, Neut % (Auto) 62.5, Lymph % (Auto) 25.7, [place] % (Auto) 6.2, Eos % (Auto) 4.2, Baso % (Auto) 1.4, Neut # (Auto) 4.8, Lymph # (Auto) 2.0, [place] # (Auto) 0.5, Eos # (Auto) 0.3, Baso # (Auto) 0.1, ESR 16 11/04/20 00:07: Sodium 141, Potassium 3.7, Chloride 110 H, Carbon Dioxide 19 L, Anion Gap 15.7 H, BUN 15, Creatinine 0.80, Estimated Creat Clear 73, Estimated GFR 75, Est GFR ( Amer) 91, Glucose 116 H, Calcium 9.1, Total Bilirubin 0.4, AST 55 H, ALT 59, Alkaline Phosphatase 105, Total Protein 7.6, Albumin 4.3, Globulin 3.3 H, Albumin/Globulin Ratio 1.3, Amylase 74, Lipase 101 11/04/20 00:07: SARS-CoV-2 (PCR) Not detected, Influenza A Untype (PCR) Not detected, Influenza Type B (PCR) Not detected 11/04/20 00:25: Urine Color Dk yellow, Urine Appearance Cloudy, Urine pH 5.5, Ur Specific [place] >= 1.030, Urine Protein Trace, Urine Glucose (UA) Negative, Urine Ketones Trace, Urine Blood Negative, Urine Nitrate Negative, Urine Bilirubin Negative, Urine Urobilinogen 1.0, Ur Leukocyte Esterase Negative, Urine RBC 3-5, Urine WBC 3-5, Ur Squamous Epith Cells 5-10, Calcium Oxalate Crystal 2+, Amorphous Sediment 1+, Urine Bacteria 1+, Urine Mucus 1+ Result diagrams: 11/04/20 00:07 11/04/20 00:07 Orders (Tests/Meds): ED MEDICATIONS Generic Name Dose Route Start Last Admin Trade Name Freq PRN Reason Stop Dose Admin Sodium Chloride 1,000 mls @ 999 mls/hr 11/04/20 00:15 11/04/20 00:14 Sod Chlor 0.9% 1000ml Bag IV 11/04/20 01:15 999 mls/hr .Q1H1M LOLIS Administration Discontinued Medications Generic Name Dose Route Start Last Admin Trade Name Freq PRN Reason Stop Dose Admin Ketorolac Tromethamine 30 mg 11/04/20 00:11 11/04/20 00:14 Ketorolac 30mg/Ml Vial IV 11/04/20 00:12 30 mg ONCE ONE Administration Ondansetron HCl 4 mg 11/04/20 00:11 11/04/20 00:14 Ondansetron 4mg/2ml Vial IV 11/04/20 00:12 4 mg ONCE ONE Administration ORDERS Category Date Time Status Amylase Stat Lab 11/04/20 00:07 Results C-Reactive Protein Stat Lab 11/04/20 00:07 Results Comprehensive Metabolic Panel Stat Lab 11/04/20 00:07 Results Lipase Stat Lab 11/04/20 00:07 Results Procalcitonin Stat Lab 11/04/20 00:07 Results Troponin I Q3H Lab 11/04/20 03:15 Ordered Troponin I Q3H Lab 11/04/20 06:15 Ordered Troponin I Stat Lab 11/04/20 00:07 Results - Radiology Data #1 Image(s): Chest Image Reviewed: Yes I have reviewed radiologist's interpretation Preliminary Findings: Normal/NAD - ECG Data Tracing #1 Arrhythmias present: sinus tach Ischemic changes: non-specific ST-T wave changes Medical Decision Narrative: vanessabl
[2020-11-04 00:45] LABS: Bilirubin,Urine Negative (Negative)
[2020-11-04 01:01] LABS: Erythrocyte Sedimentation Rate 16 mm/hr (0-30)
[2020-11-04 01:01] LABS: Amorphous Sediment,Urine 1+ /lpf; Bacteria,Urine 1+ /lpf; Calcium Oxalate Crystals,Urine 2+ /lpf; Mucus,Urine 1+ /lpf
[2020-11-04 02:47] LABS: Troponin I < 0.01 ng/ml (0.00-0.034)
[2020-11-04 02:54] VITALS: BP 150/97; PULSE 89; RESP 18; TEMP 36.9; O2SAT 99
[2020-11-04 03:54] LABS: Procalcitonin 0.091 ng/mL (0.0-2.0)
== END 2020-11-04 03:05 | disposition home or self-care (01) ==
PROVIDERS: Emergency Provider Emergency Medicine; PCP Family Medicine
DX: R53.83 Other fatigue (principal); Z20.822 Contact with and (suspected) exposure to COVID-19; I25.10 Atherosclerotic heart disease of native coronary artery without angina pectoris; I10 Essential (primary) hypertension; E78.5 Hyperlipidemia, unspecified; K21.9 Gastro-esophageal reflux disease without esophagitis
CPT/HCPCS: 71046; 80053; 81001; 82150; 83690; 84145; 84484; 85025; 85651; 86140; 93005; 96365; 99283; C9803; J2405; U0003; U0005

== ENCOUNTER 2020-12-23 09:32 | Emergency (ER) | payer OTHER, SELFPAY ==
[2020-12-23 09:35] VITALS: BP 114/69; PULSE 76; RESP 20; TEMP 36.6; O2SAT 96; BMI 25.7
--- NOTE | 2020-12-23 10:14 | HMH.EDUTC ---
[facility] Disposition Clinical Impression: Nausea and vomiting Qualifiers: Vomiting type: unspecified Vomiting Intractability: unspecified Qualified Code(s): R11.2 - Nausea with vomiting, unspecified Disposition: Home, Self-Care Condition on Discharge: Good Instructions: Nausea and Vomiting-Adult, Ondansetron, Pantoprazole Additional Instructions: Take medication as prescribed Follow up with your Family Doctor and your [employer] Prescriptions: Pantoprazole Sodium [Protonix 40mg tablet] 40 mg PO DAILY #30 tab Transmission Status: Received by [id number] Ondansetron [Zofran 4mg ODT] 4 mg PO TIDP PRN #6 tab PRN Reason: Vomiting Transmission Status: Received by [id number] Referrals: Luann Kang APRN [Primary Care Provider] - As needed Time of Disposition: 10:35 Medical Decision Making - Fredrick Inquiry Pt receiving controlled substance: No Fredrick was queried for this patient: No Vital Signs: 12/23/20 09:35 Temperature 97.9 F Temperature Source Oral Pulse Rate [Right Brachial] 76 Respiratory Rate 20 Blood Pressure [Right Arm] 114/69 Blood Pressure Mean [Right Arm] 84 Blood Pressure Source [Right Arm] Automatic Cuff Blood Pressure Position [Right Arm] Sitting 02 Sat by Pulse Oximetry 96 Oxygen Delivery Method Room Air Medical Decision Narrative: Discussed and recommended transfer to the ED for further work up and evaluation and patient declined states that she got here before it got bad and usually takes Protonix to clear it up States that if she started vomiting bright red or black she would come back to the Ed patient aware of risks even and still declined [facility] HPI - General Stated complaint: vomiting, bloody taste Time Seen by Provider: 12/23/20 10:14 Mode of Arrival: Ambulatory Source of Information: Patient Limitations: No Limitations Description of Symptoms (Recalled from Triage Doc. by RN): PATIENT C/O VOMITING SINCE MONDAY WITH OCCASIONAL SPECKS OF BLOOD AND BLOODY TASTE. SHE REPORTS A HISTORY OF VILLALBA'S ESOPHAGUS. SHE BELIEVES HER ESOPHAGUS IS IRRITATED FROM VOMITING, AND STATES WHEN THIS HAS HAPPENED BEFORE SHE WAS GIVEN PROTONIX WHICH HELPED HEENT Symptoms (Recalled from RN notes): No Resp Symptoms (Recalled from RN notes): No Skin Symptoms (Recalled from RN notes): No MS Symptoms (Recalled from RN notes): No Functional Status (Recalled from RN notes): WNL - History of Present Illness Provider Complaint: Patient states that she has been having nausea and vomiting for several days thinks she may have a bug States that she has a history of Barretts esophagus and she has been having a bloody taste in her mouth States that she is not vomiting blood yet but has had some red specks here and there in her vomit Statse that she called and spoke with her gastro doc and they told her she needed to come in States that she wanted to come in and get checked before it got bad Denies vomiting blood at this time but states that her throat feels irritated - Related Data Home Medications Medication Instructions Recorded Confirmed Amlodipine Besylate [Norvasc 5mg 5 mg PO DAILY 02/13/18 11/04/20 tablet] Aspirin [Aspirin 81mg chewable 81 mg PO DAILY 02/13/18 11/04/20 tab] Esomeprazole Magnesium [Nexium] 40 mg PO DAILY 02/13/18 11/04/20 Ferrous Sulfate [Ferrous Sulfate 325 mg PO TID 02/13/18 11/04/20 325mg Tablet] Isosorbide Mononitrate [Imdur 60mg 60 mg PO DAILY 02/13/18 11/04/20 ER tablet] Melatonin 10 mg PO HS PRN 02/13/18 11/04/20 Metoprolol Succinate [Toprol XL 25 mg PO DAILY 02/13/18 11/04/20 25mg tablet] Montelukast Sodium [Montelukast 10 mg PO HS 02/13/18 11/04/20 10mg Tab] Multivitamin [Multivitamins] 1 each PO DAILY 02/13/18 11/04/20 PARoxetine HCl [Paxil] 60 mg PO DAILY 02/13/18 11/04/20 Sucralfate [Carafate 1gm/10mL 1 gm PO TID PRN 02/13/18 11/04/20 Susp] Atorvastatin Calcium [Lipitor 80mg 80 mg PO HS 02/14/1811/04
[2020-12-23 10:38] VITALS: BP 114/69; PULSE 76; RESP 20; TEMP 36.6; O2SAT 96
== END 2020-12-23 10:41 | disposition home or self-care (01) ==
PROVIDERS: Emergency Provider Nurse Practitioner; PCP Nurse Practitioner
DX: K22.70 Barrett's esophagus without dysplasia (principal); R11.2 Nausea with vomiting, unspecified; K21.9 Gastro-esophageal reflux disease without esophagitis; E78.5 Hyperlipidemia, unspecified; I10 Essential (primary) hypertension; Z79.899 Other long term (current) drug therapy
CPT/HCPCS: 99202; G0463

== ENCOUNTER 2021-03-05 14:02 | Emergency (ER) | payer OTHER, SELFPAY ==
[2021-03-05 14:52] VITALS: BP 147/63; PULSE 81; RESP 18; TEMP 36.9; O2SAT 95; BMI 26.5
[2021-03-05 15:12] LABS: UTC Influenza A Antigen Negative (Negative); UTC Strep Screen (Rapid) Negative (Negative)
[2021-03-05 15:13] LABS: UTC Influenza B Antigen Negative (Negative)
--- NOTE | 2021-03-05 15:19 | HMH.EDUTC ---
[facility] [place] Disposition Clinical Impression: Viral syndrome, Bronchitis, Exposure to COVID-19 virus Disposition: Home, Self-Care Condition on Discharge: Good Instructions: Acute Bronchitis, DI for Acute Bronchitis, DI for COVID-19 (Suspected or Confirmed ), Preventing the Spread of Coronavirus Discharge Instructions Additional Instructions: Drink plenty of fluids. Take tylenol or ibuprofen for pain or fever. Take the medications as directed. Follow up with your regular doctor. GO TO THE ER FOR ANY WORSENING SYMPTOMS Quarantine until you know the results of your covid-19 test. If it is positive, the health department should call you and give you further instructions about your length of Quarantine and other things. Notify your school or workplace of your results and follow their instructions regarding return to work/school. The cough medication (promethazine dm) will make you drowsy, so don't drive or operate heavy machinery after taking it. Prescriptions: Promethazine/Dextromethorphan [Promethazine-Dm Syrup] 5 ml PO Q6HP PRN #240 ml PRN Reason: Cough Transmission Status: [id number] methylPREDNISolone [Medrol] 4 mg PO DIRECTED 6 Days #21 packet Transmission Status: Received by [id number] guaiFENesin [Mucinex 600mg tablet] 1 - 2 tab PO BIDP PRN #30 tab PRN Reason: Congestion Transmission Status: Received by [id number] Azithromycin [Z-Gustavo 250mg Tab*] 250 mg PO UD DOSE PK #6 tab Transmission Status: Received by [id number] Referrals: Sravan Isaacs MD [Primary Care Provider] - Forms: Work/School Release Time of Disposition: 16:05 Medical Decision Making - Medical Records Medical records reviewed: No: I reviewed the patient's medical records. - Fredrick Inquiry Pt receiving controlled substance: No Vital Signs: 03/05/21 14:52 03/05/21 15:54 Temperature 98.5 F 98.5 F Temperature Source Oral Pulse Rate 81 Pulse Rate [Left] 81 Respiratory Rate 18 18 Blood Pressure 147/63 H Blood Pressure [Right Arm] 147/63 H Blood Pressure Mean [Right Arm] 91 02 Sat by Pulse Oximetry 95 - Lab Data Lab results reviewed: Yes: I reviewed the patient's lab results. Lab Results 01/14/22 15:05: Influenza Type A Ag Negative, Influenza Type B Ag Negative 03/05/21 15:05: Strep Scn Rapid Clinic Negative Orders (Tests/Meds): ORDERS Category Date Time Status Strep Screen Confirmation Stat Micro 03/05/21 15:05 Received [facility] [place] HPI - General Stated complaint: body aches, sore throat, h/a, fever Time Seen by Provider: 03/05/21 15:19 Mode of Arrival: Ambulatory Source of Information: Patient Limitations: No Limitations Description of Symptoms (Recalled from Triage Doc. by RN): pt c/o body aches, MEJIA, nausea, cough and a sore throat. HEENT Symptoms (Recalled from RN notes): Yes (MEJIA and sore throat) Resp Symptoms (Recalled from RN notes): Yes (cough) Skin Symptoms (Recalled from RN notes): No MS Symptoms (Recalled from RN notes): No Functional Status (Recalled from RN notes): wnl - History of Present Illness Provider Complaint: She states that for the past 1 day she has had a cough, chest congestion, body aches and she has felt bad. - Related Data Home Medications Medication Instructions Recorded Confirmed Amlodipine Besylate [Norvasc 5mg 5 mg PO DAILY 02/13/18 11/04/20 tablet] Aspirin [Aspirin 81mg chewable 81 mg PO DAILY 02/13/18 11/04/20 tab] Esomeprazole Magnesium [Nexium] 40 mg PO DAILY 02/13/18 11/04/20 Ferrous Sulfate [Ferrous Sulfate 325 mg PO TID 02/13/18 11/04/20 325mg Tablet] Isosorbide Mononitrate [Imdur 60mg 60 mg PO DAILY 02/13/18 11/04/20 ER tablet] Melatonin 10 mg PO HS PRN 02/13/18 11/04/20 Metoprolol Succinate [Toprol XL 25 mg PO DAILY 02/13/18 11/04/20 25mg tablet] Montelukast Sodium [Montelukast 10 mg PO HS 02/13/18 11/04/20 10mg Tab] Multivitamin [Multivitamins] 1 each PO DAILY
[2021-03-05 15:54] VITALS: BP 147/63; PULSE 81; RESP 18; TEMP 36.9
== END 2021-03-05 16:09 | disposition home or self-care (01) ==
PROVIDERS: Emergency Provider Nurse Practitioner Family; PCP Family Medicine
DX: J20.9 Acute bronchitis, unspecified (principal); Z20.822 Contact with and (suspected) exposure to COVID-19; F41.9 Anxiety disorder, unspecified; E78.5 Hyperlipidemia, unspecified; I10 Essential (primary) hypertension; K21.9 Gastro-esophageal reflux disease without esophagitis
CPT/HCPCS: 87804; 87880; 99203; C9803; G0463; U0003; U0005

== ENCOUNTER 2021-03-15 08:59 | Emergency (ER) | payer OTHER, SELFPAY ==
[2021-03-15 09:00] VITALS: BP 162/113; PULSE 119; RESP 16; TEMP 36.9; O2SAT 95; BMI 25.6
--- NOTE | 2021-03-15 09:08 | ECG_ITS ---
APPROVED REPORT Exam: Resting ECG HR:106 bpm ECG Measurements Heart Rate 106 AXES WA 145 P 52 QRSd 138 QRS -26 QT 362 T 75 QTc 424 Conclusion SINUS TACHYCARDIA LEFT BUNDLE BRANCH BLOCK [120+ ms QRS DURATION, 80+ ms Q/S IN V1/V2, 85+ ms R IN I/aVL/V5/V6] ABNORMAL ECG UNCONFIRMED REPORT Electronically signed by : Richy Peralta MD 03/15/2021 18:34:05
--- NOTE | 2021-03-15 09:13 | XR_ITS ---
FINAL REPORT CLINICAL HISTORY: tachyarrythmia FINDINGS: The heart size is normal. Metallic density projects over the right heart probably due to an Amplatzer device. The mediastinum is normal. There is no focal infiltrate or edema. There are no pleural effusions. There is no pneumothorax. There is no osseous abnormality. IMPRESSION: No acute cardiopulmonary process Reviewed, Interpreted and Dictated by Emmanuel Najera MD Transcribed by Nestor Carson Authenticated by Emmanuel Najera MD on 03/16/2021 11:18:03 AM [facility]
--- NOTE | 2021-03-15 09:14 | HMH.EDGENADL ---
ED Disposition Clinical Impression: Atypical chest pain Disposition: Home, Self-Care Condition on Discharge: Good Instructions: DI for Atypical Chest Pain Additional Instructions: follow up pcp Referrals: Sravan Isaacs MD [Primary Care Provider] - - Critical Care Critical Care Time: No Attestation: On 03/15/21, the high probability of a clinically significant, sudden or life threatening deterioration of the following system(s) required my full and direct attention, intervention and personal management. The time I documented below is in addition to time spent performing reported procedures but includes the following listed in this critical care notation. Medical Decision Making - Medical Records Medical records reviewed: Yes: I reviewed the patient's medical records. - Fredrick Inquiry Pt receiving controlled substance: No Vital Signs: 03/15/21 09:00 03/15/21 09:56 03/15/21 11:12 Temperature 98.4 F Temperature Source Oral Pulse Rate 98 H 77 Pulse Rate [Right] 119 H Respiratory Rate 16 17 15 Blood Pressure 142/88 H 126/72 Blood Pressure [Right Arm] 162/113 H Blood Pressure Mean [Right Arm] 129 Blood Pressure Source [Right Arm] Automatic Cuff Blood Pressure Position [Right Arm] Sitting 02 Sat by Pulse Oximetry 95 99 95 Oxygen Delivery Method Room Air Room Air Room Air - Lab Data Lab Results 03/15/21 09:10: WBC 9.7, RBC 5.60 H, Hgb 15.9, Hct 47.6 H, MCV 85.0, MCH 28.4, MCHC 33.4, RDW 14.2, Plt Count 425 H, MPV 7.4, Neut % (Auto) 67.0, Lymph % (Auto) 21.8, [place] % (Auto) 5.8, Eos % (Auto) 4.4, Baso % (Auto) 1.0, Neut # (Auto) 6.5, Lymph # (Auto) 2.1, [place] # (Auto) 0.6, Eos # (Auto) 0.4, Baso # (Auto) 0.1 03/15/21 09:10: Sodium 137, Potassium 3.1 L, Chloride 94 L, Carbon Dioxide 31 H, Anion Gap 15.1 H, BUN 15, Creatinine 1.00, Estimated Creat Clear 65, Estimated GFR 58 L, Est GFR ( Amer) 70, Glucose 131 H, Calcium 9.9, Total Bilirubin 1.1, AST 79 H, ALT 73, Alkaline Phosphatase 82, Troponin I < 0.01, Total Protein 8.4 H, Albumin 4.9, Globulin 3.5 H, Albumin/Globulin Ratio 1.4 03/15/21 11:05: Troponin I < 0.01 Result diagrams: 03/15/21 09:10 03/15/21 09:10 Orders (Tests/Meds): ED MEDICATIONS Discontinued Medications Generic Name Dose Route Start Last Admin Trade Name Hammad PRN Reason Stop Dose Admin Metoprolol Tartrate 50 mg 03/15/21 09:13 03/15/21 09:27 Metoprolol Tartrate 50mg Tablet PO 03/15/21 09:14 50 mg ONCE ONE Administration Potassium Chloride 40 meq 03/15/21 09:41 03/15/21 09:49 Potassium Chloride 20meq Tab PO 03/15/21 09:42 40 meq ONCE ONE Administration ORDERS Category Date Time Status XR chest portable Stat Exams 03/15/21 09:13 Taken Covid-19 Nasal PCR ([facility]) Routine Lab 03/15/21 09:34 Received Troponin I Q3H Lab 03/15/21 15:15 Ordered - ECG Data Tracing #1 ekg by ca sinus tach 106, lbbb, no st elev Medical Decision Narrative: reeval, appears well ,vss, ok with plan to f/u pcp General Adult HPI - General Stated complaint: elevated BP/HR Time Seen by Provider: 03/15/21 09:14 Source of Information: Patient Limitations: No Limitations - History of Present Illness HPI narrative: says she woke up not feeling right , non specific, also out of antidepressant few days but has refill at pharmacy today Onset (ago): day(s) Radiation: non-radiation Severity: mild Consistency: intermittent Relieving factors: none Exacerbating factors: none Associated symptoms: denies other symptoms - Related Data Home Medications Medication Instructions Recorded Confirmed Amlodipine Besylate [Norvasc 5mg 5 mg PO DAILY 02/13/18 11/04/20 tablet] Aspirin [Aspirin 81mg chewable 81 mg PO DAILY 02/13/18 11/04/20 tab] Esomeprazole Magnesium [Nexium] 40 mg PO DAILY 02/13/18 11/04/20 Ferrous Sulfate [Ferrous Sulfate 325 mg PO TID 02/13/18 11/04/20 325mg Tablet] Isosorbide Mononitrate [Imdur 60mg
[2021-03-15 09:26] LABS: Basophils # 0.1 K/mm3 (0-0.2); Eosinophils # 0.4 K/mm3 (0.0-0.4); Eosinophils % 4.4 % (0.1-12.0); Hematocrit 47.6 % (37.0-47.0); Hemoglobin 15.9 g/dL (12.2-16.2); Lymphocytes # 2.1 K/mm3 (0.7-4.5); Lymphocytes % 21.8 % (10-50); Mean Corpuscular HGB Conc 33.4 g/dL (31.8-35.4); Mean Corpuscular Hemoglobin 28.4 pg (27.0-31.2); Mean Platelet Volume 7.4 fl (7.4-10.4); Monocytes # 0.6 K/mm3 (0.1-1.0); Monocytes % 5.8 % (1.7-9.3); Neutrophils # 6.5 K/mm3 (1.8-7.8); Platelet Count 425 K/mm3 (142-424); Red Cell Distribution Width 14.2 % (11.5-17.5); White Blood Count 9.7 K/mm3 (4.8-10.8)
[2021-03-15 09:30] LABS: Chloride 94 mmol/L (98-107); Potassium 3.1 mmoL/L (3.5-5.1); Sodium 137 mmol/L (136-145)
[2021-03-15 09:32] LABS: Alanine Aminotransferase 73 U/L (12-78); Aspartate Amino Transferase 79 U/L (14-36); Blood Urea Nitrogen 15 mg/dl (7-17); Creatinine Clearance Estimated 65 mL/min (50-200); Estimated Glomerular Filt Rate 58 ml/min (>60); GFR (African American) 70 ML/MIN (>60)
[2021-03-15 09:33] LABS: Albumin Level 4.9 g/dl (3.5-5.0); Albumin/Globulin Ratio 1.4 (1.1-1.8); Alkaline Phosphatase 82 U/L (38-126); Anion Gap 15.1 mEq/L (5-15); Bilirubin,Total 1.1 mg/dl (0.2-1.3); Calcium 9.9 mg/dl (8.4-10.2); Carbon Dioxide 31 mmol/L (22.0-30.0); Globulin 3.5 g/dL (1.3-3.2); Glucose 131 mg/dl (74-100); Total Protein,Serum 8.4 g/dl (6.3-8.2)
[2021-03-15 09:48] LABS: Troponin I < 0.01 ng/ml (0.00-0.034)
[2021-03-15 09:56] VITALS: BP 142/88; PULSE 98; RESP 17; O2SAT 99
--- NOTE | 2021-03-15 10:41 | PC.NURSE ---
Updated pt on POC which is going to be draw repeat trop at 11am and if it is negative then we anticipate discharge.
--- NOTE | 2021-03-15 11:06 | PC.NURSE ---
2nd troponin drawn and sent to lab; patient has no needs at this time
[2021-03-15 11:12] VITALS: BP 126/72; PULSE 77; RESP 15; O2SAT 95
[2021-03-15 11:52] LABS: Troponin I < 0.01 ng/ml (0.00-0.034)
[2021-03-15 12:11] VITALS: BP 121/70; PULSE 74; RESP 97; TEMP 36.9; O2SAT 96
[2021-03-15 12:15] VITALS: BP 116/58; PULSE 84; RESP 16; TEMP 36.6; O2SAT 98
== END 2021-03-15 12:12 | disposition home or self-care (01) ==
PROVIDERS: Emergency Provider Emergency Medicine; PCP Family Medicine
DX: U07.1 COVID-19 (principal); R07.89 Other chest pain; K21.9 Gastro-esophageal reflux disease without esophagitis; E78.5 Hyperlipidemia, unspecified; I10 Essential (primary) hypertension; F41.9 Anxiety disorder, unspecified; Z79.899 Other long term (current) drug therapy
CPT/HCPCS: 71045; 80053; 84484; 85025; 93005; 99283; C9803; U0003; U0005

== ENCOUNTER → 2021-11-25 15:28 | Outpatient (CLI) | payer OTHER, SELFPAY ==
[2021-11-25 19:10] LABS: Basophils # 0.1 K/mm3 (0-0.2); Basophils % 1.3 % (0.1-2.0); Eosinophils # 0.4 K/mm3 (0.0-0.4); Eosinophils % 4.1 % (0.1-12.0); Hemoglobin 13.7 g/dL (12.2-16.2); Lymphocytes # 2.8 K/mm3 (0.7-4.5); Lymphocytes % 29.7 % (10-50); Mean Corpuscular HGB Conc 32.6 g/dL (31.8-35.4); Mean Corpuscular Hemoglobin 27.5 pg (27.0-31.2); Mean Corpuscular Volume 84.2 fl (81-99); Mean Platelet Volume 7.4 fl (7.4-10.4); Monocytes # 0.7 K/mm3 (0.1-1.0); Monocytes % 7.3 % (1.7-9.3); Neutrophils # 5.4 K/mm3 (1.8-7.8); Neutrophils % 57.5 % (37.0-80.0); Platelet Count 498 K/mm3 (142-424); Red Blood Count 4.99 M/mm3 (4.20-5.40); Red Cell Distribution Width 14.3 % (11.5-17.5); White Blood Count 9.3 K/mm3 (4.8-10.8)
[2021-11-25 19:20] LABS: Anion Gap 19.4 mEq/L (5-15); Blood Urea Nitrogen 19 mg/dl (7-17); Carbon Dioxide 28 mmol/L (22.0-30.0); Chloride 97 mmol/L (98-107); Estimated Glomerular Filt Rate 65 ml/min (>60); GFR (African American) 79 ML/MIN (>60); Glucose 86 mg/dl (74-100); Potassium 3.4 mmoL/L (3.5-5.1); Sodium 141 mmol/L (136-145)
== END ==
PROVIDERS: PCP Nurse Practitioner; Visit Provider Nurse Practitioner
DX: E87.6 Hypokalemia (principal); D64.9 Anemia, unspecified
CPT/HCPCS: 80048; 85025

== ENCOUNTER → 2022-06-29 09:29 | Outpatient (CLI) | payer OTHER, SELFPAY ==
[2022-06-29 18:17] LABS: Basophils # 0.1 K/mm3 (0-0.2); Basophils % 0.5 % (0.1-2.0); Eosinophils # 0.2 K/mm3 (0.0-0.4); Eosinophils % 1.7 % (0.1-12.0); Hematocrit 37.3 % (37.0-47.0); Lymphocytes # 1.7 K/mm3 (0.7-4.5); Lymphocytes % 12.7 % (10-50); Mean Corpuscular HGB Conc 32.3 g/dL (31.8-35.4); Mean Corpuscular Volume 83.8 fl (81-99); Mean Platelet Volume 8.1 fl (7.4-10.4); Monocytes # 0.6 K/mm3 (0.1-1.0); Monocytes % 4.3 % (1.7-9.3); Neutrophils # 10.5 K/mm3 (1.8-7.8); Neutrophils % 80.8 % (37.0-80.0); Platelet Count 630 K/mm3 (142-424); Red Blood Count 4.45 M/mm3 (4.20-5.40); Red Cell Distribution Width 12.9 % (11.5-17.5)
[2022-06-29 18:40] LABS: Alanine Aminotransferase 21 U/L (12-78); Albumin Level 3.3 g/dl (3.5-5.0); Albumin/Globulin Ratio 1.1 (1.1-1.8); Alkaline Phosphatase 137 U/L (38-126); Amylase 180 U/L (30-110); Anion Gap 15.4 mEq/L (5-15); Aspartate Amino Transferase 29 U/L (14-36); Bilirubin,Total 0.2 mg/dl (0.2-1.3); Blood Urea Nitrogen 17 mg/dl (7-17); Calcium 8.9 mg/dl (8.4-10.2); Carbon Dioxide 29 mmol/L (22.0-30.0); Chloride 96 mmol/L (98-107); Estimated Glomerular Filt Rate 104 ml/min (>60); GFR (African American) 126 ML/MIN (>60); Globulin 2.9 g/dL (1.3-3.2); Glucose 91 mg/dl (74-100); Potassium 3.4 mmoL/L (3.5-5.1); Sodium 137 mmol/L (136-145); Total Protein,Serum 6.2 g/dl (6.3-8.2)
[2022-06-29 19:35] LABS: Lipase 979 U/L (23-300)
== END ==
LOC: LAB.DROPOF 06-30 06:23
PROVIDERS: PCP Nurse Practitioner; Visit Provider Nurse Practitioner
DX: R10.13 Epigastric pain (principal); R19.7 Diarrhea, unspecified
CPT/HCPCS: 80053; 82150; 83690; 85025

== ENCOUNTER → 2022-07-13 23:10 | Outpatient (CLI) | payer OTHER, SELFPAY ==
[2022-07-13 17:49] LABS: Basophils # 0.1 K/mm3 (0-0.2); Basophils % 0.4 % (0.1-2.0); Eosinophils # 0.2 K/mm3 (0.0-0.4); Hematocrit 39.8 % (37.0-47.0); Hemoglobin 12.8 g/dL (12.2-16.2); Lymphocytes % 19.6 % (10-50); Mean Corpuscular HGB Conc 32.3 g/dL (31.8-35.4); Mean Corpuscular Hemoglobin 27.1 pg (27.0-31.2); Mean Corpuscular Volume 83.9 fl (81-99); Mean Platelet Volume 7.8 fl (7.4-10.4); Monocytes # 0.6 K/mm3 (0.1-1.0); Monocytes % 5.6 % (1.7-9.3); Neutrophils # 7.6 K/mm3 (1.8-7.8); Neutrophils % 72.4 % (37.0-80.0); Platelet Count 599 K/mm3 (142-424); Red Blood Count 4.74 M/mm3 (4.20-5.40); Red Cell Distribution Width 13.9 % (11.5-17.5); White Blood Count 10.4 K/mm3 (4.8-10.8)
[2022-07-13 17:50] LABS: Alanine Aminotransferase 19 U/L (12-78); Albumin Level 3.7 g/dl (3.5-5.0); Albumin/Globulin Ratio 1.2 (1.1-1.8); Alkaline Phosphatase 140 U/L (38-126); Amylase 82 U/L (30-110); Anion Gap 19.7 mEq/L (5-15); Aspartate Amino Transferase 29 U/L (14-36); Bilirubin,Total 0.6 mg/dl (0.2-1.3); Blood Urea Nitrogen 22 mg/dl (7-17); Calcium 9.4 mg/dl (8.4-10.2); Carbon Dioxide 27 mmol/L (22.0-30.0); Chloride 92 mmol/L (98-107); Estimated Glomerular Filt Rate 65 ml/min (>60); GFR (African American) 79 ML/MIN (>60); Glucose 106 mg/dl (74-100); Lipase 175 U/L (23-300); Potassium 3.7 mmoL/L (3.5-5.1); Sodium 135 mmol/L (136-145); Total Protein,Serum 6.7 g/dl (6.3-8.2)
== END ==
LOC: LAB.DROPOF 23:10
PROVIDERS: PCP Family Medicine; Visit Provider Family Medicine
DX: R10.13 Epigastric pain (principal); K85.90 Acute pancreatitis without necrosis or infection, unspecified
CPT/HCPCS: 80053; 82150; 83690; 85025

== ENCOUNTER 2022-08-15 14:08 | Emergency (ER) | payer OTHER, SELFPAY ==
[2022-08-15] VITALS (23 sets, daily range): BP systolic 102–123; BP diastolic 59–90; PULSE 16–116; RESP 15–22; TEMP 36.7–37.5; O2SAT 96–109; BMI 18.8
--- NOTE | 2022-08-15 14:10 | ECG_ITS ---
APPROVED REPORT Exam: Resting ECG HR:120 bpm ECG Measurements Heart Rate 120 AXES [place] 156 P 36 QRSd 129 QRS -44 QT 359 T 81 QTc 430 Conclusion SINUS TACHYCARDIA LEFT AXIS DEVIATION [QRS AXIS < -30] POSSIBLE ANTERIOR MYOCARDIAL INFARCTION , OF INDETERMINATE AGE [30 ms Q WAVE IN V3/V4, OR R < 0.2 mV IN V4] ABNORMAL ECG UNCONFIRMED REPORT Electronically signed by : Richy Peralta MD 08/15/2022 21:24:38
--- NOTE | 2022-08-15 14:12 | CT_ITS ---
FINAL REPORT TECHNIQUE: After the administration of intravenous contrast, axial images were obtained through the abdomen and pelvis by computed tomography. This study was performed with technique to keep radiation doses as low as reasonably achievable, (ALARA). Individualized dose reduction techniques using automated exposure control or adjustment of the MA and/or KV according to the patient's size were employed. CLINICAL HISTORY: abdominal pain COMPARISON: 08/05/2019 FINDINGS: Abdomen: There is wall thickening of the distal thoracic esophagus worrisome for inflammatory change. The lung bases are clear. The liver is normal in size and attenuation. The spleen is unremarkable. The adrenals are normal. The pancreas is unremarkable. The kidneys enhance appropriately. The aorta is normal in caliber. There is no free fluid or adenopathy. There are postoperative changes from gastric bypass. Gastric pouch is distended with either food or possibly a bezoar. There is wall thickening of the stomach and proximal jejunal limb consistent with inflammatory change. Several enlarged gastrohepatic and anterior left upper quadrant lymph nodes are seen which may be reactive. There is moderate stool throughout the colon. Pelvis: The appendix is not identified. The urinary bladder is unremarkable. There is a small amount of pelvic free fluid which is likely reactive. IMPRESSION: Postoperative changes of gastric bypass with abnormal appearance to the stomach and jejunal limb consistent with inflammation. Distended gastric pouch with food or bezoar. Inflammation of the distal thoracic esophagus worrisome for inflammatory change. Left upper quadrant lymph nodes which may be reactive. Recommend upper endoscopy for further evaluation. Reviewed, Interpreted and Dictated by Morales Soto III, MD Transcribed by Dede Bloom Authenticated and [facility]
--- NOTE | 2022-08-15 14:12 | XR_ITS ---
FINAL REPORT CLINICAL HISTORY: Shortness of breath COMPARISON: 03/15/2021 FINDINGS: A single portable view of the chest was obtained. The heart size and pulmonary vascularity are within normal limits. The mediastinum is within normal limits. No acute pulmonary abnormality is identified. The bony thorax is intact. IMPRESSION: No active cardiopulmonary disease. Reviewed, Interpreted and Dictated by Morales Soto III, MD Transcribed by Radha Masters Authenticated and [facility]
--- NOTE | 2022-08-15 14:18 | PC.NURSE ---
lab at bedside to obtain type and cross.
[2022-08-15 14:30] LABS: Basophils # 0.1 K/mm3 (0-0.2); Basophils % 0.4 % (0.1-2.0); Eosinophils # 0.1 K/mm3 (0.0-0.4); Eosinophils % 0.5 % (0.1-12.0); Lymphocytes # 1.2 K/mm3 (0.7-4.5); Lymphocytes % 9.8 % (10-50); Mean Corpuscular HGB Conc 31.3 g/dL (31.8-35.4); Mean Corpuscular Hemoglobin 25.6 pg (27.0-31.2); Mean Corpuscular Volume 81.8 fl (81-99); Mean Platelet Volume 7.8 fl (7.4-10.4); Monocytes # 0.5 K/mm3 (0.1-1.0); Monocytes % 3.9 % (1.7-9.3); Neutrophils # 10.5 K/mm3 (1.8-7.8); Neutrophils % 85.4 % (37.0-80.0); Platelet Count 630 K/mm3 (142-424); Red Blood Count 2.52 M/mm3 (4.20-5.40); Red Cell Distribution Width 14.7 % (11.5-17.5); White Blood Count 12.3 K/mm3 (4.8-10.8)
--- NOTE | 2022-08-15 14:40 | PC.NURSE ---
blood consent form signed.
[2022-08-15 14:47] LABS: Hematocrit 20.6 % (37.0-47.0)
[2022-08-15 14:48] LABS: MANUAL DIFFERENTIAL MANUAL DIFFERENTIAL (MANUAL DIFF)
--- NOTE | 2022-08-15 14:48 | PC.NURSE ---
notified RAMYA GAR of critical lab results
[2022-08-15 14:49] LABS: Hemoglobin 6.5 g/dL (12.2-16.2)
--- NOTE | 2022-08-15 14:52 | PC.NURSE ---
pt updated on POC.
[2022-08-15 14:55] LABS: Occult Blood,Stool Positive (Negative)
[2022-08-15 15:06] LABS: Chloride 101 mmol/L (98-107); Sodium 134 mmol/L (136-145)
[2022-08-15 15:08] LABS: Alanine Aminotransferase 14 U/L (12-78); Alkaline Phosphatase 105 U/L (38-126); Aspartate Amino Transferase 22 U/L (14-36); Bilirubin,Total 0.3 mg/dl (0.2-1.3); Blood Urea Nitrogen 26 mg/dl (7-17); Creatinine Clearance Estimated 59 mL/min (50-200); Estimated Glomerular Filt Rate 74 ml/min (>60); GFR (African American) 90 ML/MIN (>60)
[2022-08-15 15:09] LABS: Albumin Level 2.4 g/dl (3.5-5.0); Albumin/Globulin Ratio 0.9 (1.1-1.8); Anion Gap 10.9 mEq/L (5-15); Calcium 7.3 mg/dl (8.4-10.2); Carbon Dioxide 25 mmol/L (22.0-30.0); Globulin 2.7 g/dL (1.3-3.2); Glucose 89 mg/dl (74-100); Hypochromasia 1+; Lipase 73 U/L (23-300); Lymphocytes % 10 % (10-50); Microcytosis 1+; Neutrophils % 90 % (42-76); Total Cells Counted 100; Total Protein,Serum 5.1 g/dl (6.3-8.2)
[2022-08-15 15:10] LABS: Platelet Estimate Moderate Increase
[2022-08-15 15:20] LABS: Potassium 2.9 mmoL/L (3.5-5.1); Troponin I 0.02 ng/ml (0.00-0.034)
--- NOTE | 2022-08-15 15:20 | PC.NURSE ---
notified ER of critical potassium
[2022-08-15 15:48] LABS: Coronavirus 19, PCR Not Detected (NotDetected); Influenza A, PCR Not Detected (NotDetected); Influenza B, PCR Not Detected (NotDetected)
--- NOTE | 2022-08-15 15:48 | HMH.EDGENADL ---
Discharge Plan Disposition Patient Disposition: Still a Patient Prescriptions Prescriptions: No Action chlorthalidone 25 mg tablet 25 mg PO DAILY Label Comments: TAKE 1 TABLET BY MOUTH EVERY DAY IN THE MORNING cyclobenzaprine 10 mg tablet 10 mg PO TID PRN (Reason: muscle spasm) Qty: 30 0RF ondansetron HCl 4 mg tablet 4 mg PO Q8H PRN (Reason: nausea and vomiting) Qty: 20 0RF ferrous sulfate 325 mg (65 mg iron) tablet 325 mg PO TID Qty: 90 5RF aripiprazole 5 mg tablet 5 mg PO DAILY hydroxyzine pamoate 25 mg capsule 25 - 50 mg PO QID PRN (Reason: anxiety) paroxetine HCl [Paxil] 40 mg tablet 60 mg PO DAILY Qty: 30 0RF zolpidem 10 mg tablet 10 mg PO HS Qty: 30 0RF sucralfate 1 GM/10 ML suspension 1 g PO TID PRN (Reason: Acid Reflux) isosorbide mononitrate 60 MG tablet extended release 24 hr 60 mg PO DAILY aspirin 81 MG tablet,chewable 81 mg PO DAILY metoprolol succinate 25 MG tablet extended release 24 hr 25 mg PO DAILY multivitamin 1 EACH capsule 1 ea PO DAILY atorvastatin 80 MG tablet 80 mg PO HS potassium chloride 20 mEq tablet,ER particles/crystals 20 meq PO BID Referrals Follow up/Referrals: Sravan Isaacs MD [Primary Care Provider] - See instructions Clinical Impressions Clinical Impression: Acute GI bleeding Instructions Patient Instructions: DI for Gastrointestinal Bleeding Discharge ED Provider: Erik Leach General Adult HPI General Chief complaint: GI Bleed Stated complaint: vomiting Time Seen by Provider: 08/15/22 14:10 Mode of Arrival: EMS Source of Information: Patient Limitations: No Limitations Description of Symptoms (Recalled from ER Triage Doc. by RN): pt presents by EMS with complaints of n/v. pt states she has had blood in her vomit. pt reports abdominal pain. pt pale and tachycardic. pt was hypotensive upon EMS arrival. History of Present Illness HPI narrative: 57-year-old female history of Mayer's esophagus esophageal dilations presents after tarry stools per rectum and had 1 episode of bright red blood vomiting. She has mild abdominal abdominal pain diffusely as well no chest pain. No difficulty breathing. She is not on any blood thinners. Related Data Home Medications Medication Instructions Recorded Confirmed aspirin 81 mg chewable tablet 81 mg PO DAILY HEART HEALTH 02/13/18 07/13/22 isosorbide mononitrate 60 mg 60 mg PO DAILY ANGINA 02/13/18 07/13/22 tablet,extended release 24 hr metoprolol succinate 25 mg 25 mg PO DAILY Hypertension 02/13/18 07/13/22 tablet,extended release 24 hr multivitamin 1 ea PO DAILY Supplement 02/13/18 07/13/22 sucralfate 100 mg/mL oral 1 g PO TID PRN Acid Reflux 02/13/18 07/13/22 suspension atorvastatin 80 mg tablet 80 mg PO HS Cholesterol 02/14/18 07/13/22 aripiprazole 5 mg tablet 5 mg PO DAILY . 11/25/21 07/13/22 hydroxyzine pamoate 25 mg capsule 25 - 50 mg PO QID PRN anxiety 11/25/21 07/13/22 chlorthalidone 25 mg tablet 25 mg PO DAILY . 06/08/22 07/13/22 potassium chloride 20 mEq 20 meq PO BID Supplement 08/15/22 tablet,extended release(part/cryst) Previous Rx's Medication Instructions Recorded ferrous sulfate 325 mg (65 mg 325 mg PO TID ANEMIA #90 tabs 11/25/21 iron) tablet paroxetine HCl 40 mg tablet (Paxil) 60 mg PO DAILY Depression #30 tabs 03/01/22 cyclobenzaprine 10 mg tablet 10 mg PO TID PRN muscle spasm #30 06/08/22 tabs ondansetron HCl 4 mg tablet 4 mg PO Q8H PRN nausea and 06/29/22 vomiting #20 tabs zolpidem 10 mg tablet 10 mg PO HS Insomnia #30 tabs 08/03/22 Allergies Allergy/AdvReac Type Severity Reaction Status Date / Time No Known Allergies Allergy Verified 07/13/22 10:12 [facility] Disclaimer: The information contained in this section may have been updated after the patient was seen, as this information can be updated by other users. Medical History (Updated 08/15/22 @ 18:20 by Erik
--- NOTE | 2022-08-15 15:49 | PC.NURSE ---
pt returned from CT.
--- NOTE | 2022-08-15 16:20 | PC.NURSE ---
lab called regarding blood being ready.
--- NOTE | 2022-08-15 16:46 | PC.NURSE ---
pt tolerating blood transfusing and out of 15 minute monitoring, blood infusing rate increased.
--- NOTE | 2022-08-15 16:55 | PC.NURSE ---
Dr. Leach spoke with Dr. Bae regarding admission. Working on contacting [facility] at this time d/t pt having bariatric surgery there.
--- NOTE | 2022-08-15 17:15 | PC.NURSE ---
1st unit of blood complete, pt tolerated well. no s/s distress. vss. pt alert and oriented. pt denies any pain at this time.
--- NOTE | 2022-08-15 17:55 | PC.NURSE ---
Placed call back to their MD is in an emergency and they will call back.
--- NOTE | 2022-08-15 17:56 | PC.NURSE ---
pt tolerating blood transfusing and out of 15 minute monitoring, blood infusing rate increased.
--- NOTE | 2022-08-15 18:15 | PC.NURSE ---
Dr Leach speaking with [facility] at this time.
--- NOTE | 2022-08-15 18:18 | PC.NURSE ---
Dr. Leach spoke with Dr. Childress at [facility] who states they will work on finding patient a bed. Pt updated on POC.
--- NOTE | 2022-08-15 18:25 | PC.NURSE ---
2nd unit of blood complete, pt tolerated well. no s/s distress. vss. pt alert and oriented. pt denies any pain at this time. pt updated on POC and awaiting bed placement at [facility].
--- NOTE | 2022-08-15 18:25 | PC.NURSE ---
lab notified of post H&H needed at [facility]
--- NOTE | 2022-08-15 19:05 | PC.NURSE ---
RAMYA GAR spoke with ER, pt accepted to ER per Dr. Mary Baer, states divert was overrode to accept pt.
--- NOTE | 2022-08-15 19:14 | PC.NURSE ---
report called to [employer] floss packer at [facility].
--- NOTE | 2022-08-15 19:17 | PC.NURSE ---
contacted [facility] to check for possible flight, states they do not have a helicopter available at this time states we can call back to check in approx 45 minutes. Asked if we are okay to try another flight service to transport pt to their facility, they stated yes that was okay.
--- NOTE | 2022-08-15 19:20 | PC.NURSE ---
Called [facility] for transport to [facility]. They state [facility] is available and they are checking weather and will call back.
--- NOTE | 2022-08-15 19:32 | PC.NURSE ---
[facility] called and stated [facility] cannot accept d/t weather. However, [facility] can accept with a 32 min flight time. fire supervisor notified to secure naren-pad at that time. Pt updated with POC.
[2022-08-15 19:46] LABS: Basophils # 0.1 K/mm3 (0-0.2); Basophils % 0.6 % (0.1-2.0); Eosinophils # 0.1 K/mm3 (0.0-0.4); Hematocrit 29.6 % (37.0-47.0); Lymphocytes # 2.1 K/mm3 (0.7-4.5); Lymphocytes % 18.9 % (10-50); Mean Corpuscular HGB Conc 32.1 g/dL (31.8-35.4); Mean Corpuscular Hemoglobin 26.1 pg (27.0-31.2); Mean Corpuscular Volume 81.5 fl (81-99); Monocytes # 0.6 K/mm3 (0.1-1.0); Monocytes % 5.6 % (1.7-9.3); Neutrophils # 8.1 K/mm3 (1.8-7.8); Neutrophils % 73.9 % (37.0-80.0); Platelet Count 538 K/mm3 (142-424); Red Blood Count 3.63 M/mm3 (4.20-5.40); Red Cell Distribution Width 14.9 % (11.5-17.5)
[2022-08-15 19:54] LABS: Hemoglobin 9.5 g/dL (12.2-16.2)
--- NOTE | 2022-08-15 20:11 | PC.NURSE ---
[facility] here at this time. Report given by myself.
== END 2022-08-15 20:19 | disposition short-term general hospital (02) ==
PROVIDERS: Emergency Provider Emergency Medicine; PCP Family Medicine
DX: K92.2 Gastrointestinal hemorrhage, unspecified (principal); R10.9 Unspecified abdominal pain; R00.0 Tachycardia, unspecified; K22.70 Barrett's esophagus without dysplasia; I25.10 Atherosclerotic heart disease of native coronary artery without angina pectoris; D64.9 Anemia, unspecified
CPT/HCPCS: 36415; 36430; 71045; 74177; 80053; 82272; 83690; 84484; 85007; 85025; 86850; 87635; 87636; 93005; 96374; 99285; C9803; G0328; J2405; P9016; Q9967; U0003; U0005

== ENCOUNTER → 2022-08-29 23:33 | Outpatient (CLI) | payer OTHER, SELFPAY ==
[2022-08-29 19:26] LABS: Basophils # 0.1 K/mm3 (0-0.2); Basophils % 0.8 % (0.1-2.0); Eosinophils # 0.3 K/mm3 (0.0-0.4); Hematocrit 36.7 % (37.0-47.0); Hemoglobin 11.2 g/dL (12.2-16.2); Lymphocytes # 1.9 K/mm3 (0.7-4.5); Lymphocytes % 20.2 % (10-50); Mean Corpuscular HGB Conc 30.7 g/dL (31.8-35.4); Mean Corpuscular Hemoglobin 25.8 pg (27.0-31.2); Mean Corpuscular Volume 84.3 fl (81-99); Mean Platelet Volume 7.7 fl (7.4-10.4); Monocytes # 0.5 K/mm3 (0.1-1.0); Monocytes % 4.8 % (1.7-9.3); Neutrophils # 6.8 K/mm3 (1.8-7.8); Neutrophils % 71.3 % (37.0-80.0); Platelet Count 700 K/mm3 (142-424); Red Blood Count 4.35 M/mm3 (4.20-5.40); Red Cell Distribution Width 14.8 % (11.5-17.5); White Blood Count 9.6 K/mm3 (4.8-10.8)
[2022-08-29 19:39] LABS: Alanine Aminotransferase 32 U/L (12-78); Albumin Level 3.5 g/dl (3.5-5.0); Albumin/Globulin Ratio 1.2 (1.1-1.8); Alkaline Phosphatase 132 U/L (38-126); Anion Gap 14.2 mEq/L (5-15); Aspartate Amino Transferase 48 U/L (14-36); Blood Urea Nitrogen 21 mg/dl (7-17); Carbon Dioxide 25 mmol/L (22.0-30.0); Chloride 106 mmol/L (98-107); Estimated Glomerular Filt Rate 65 ml/min (>60); GFR (African American) 79 ML/MIN (>60); Glucose 90 mg/dl (74-100); Potassium 4.2 mmoL/L (3.5-5.1); Sodium 141 mmol/L (136-145); Total Protein,Serum 6.5 g/dl (6.3-8.2)
[2022-08-29 20:46] LABS: Bilirubin,Total 0.1 mg/dl (0.2-1.3)
== END ==
LOC: LAB.DROPOF 23:34
PROVIDERS: PCP Nurse Practitioner; Visit Provider Nurse Practitioner
DX: E87.6 Hypokalemia (principal); K22.70 Barrett's esophagus without dysplasia
CPT/HCPCS: 80053; 85025

== ENCOUNTER → 2022-10-03 10:40 | Outpatient (CLI) | payer OTHER, SELFPAY ==
[2022-10-03 19:49] LABS: Basophils % 0.3 % (0.1-2.0); Eosinophils # 0.1 K/mm3 (0.0-0.4); Eosinophils % 0.6 % (0.1-12.0); Hematocrit 44.1 % (37.0-47.0); Hemoglobin 14.2 g/dL (12.2-16.2); Lymphocytes # 1.6 K/mm3 (0.7-4.5); Lymphocytes % 11.8 % (10-50); Mean Corpuscular HGB Conc 32.2 g/dL (31.8-35.4); Mean Corpuscular Hemoglobin 25.9 pg (27.0-31.2); Mean Corpuscular Volume 80.3 fl (81-99); Mean Platelet Volume 8.3 fl (7.4-10.4); Monocytes # 0.8 K/mm3 (0.1-1.0); Monocytes % 5.5 % (1.7-9.3); Neutrophils # 11.2 K/mm3 (1.8-7.8); Neutrophils % 81.9 % (37.0-80.0); Platelet Count 487 K/mm3 (142-424); Red Blood Count 5.49 M/mm3 (4.20-5.40); Red Cell Distribution Width 14.5 % (11.5-17.5); White Blood Count 13.7 K/mm3 (4.8-10.8)
[2022-10-03 20:23] LABS: Chloride 97 mmol/L (98-107); Potassium 3.1 mmoL/L (3.5-5.1); Sodium 137 mmol/L (136-145)
[2022-10-03 20:25] LABS: Amylase 98 U/L (30-110)
[2022-10-03 20:26] LABS: Alanine Aminotransferase 25 U/L (12-78); Albumin Level 3.7 g/dl (3.5-5.0); Albumin/Globulin Ratio 1.3 (1.1-1.8); Alkaline Phosphatase 119 U/L (38-126); Anion Gap 13.1 mEq/L (5-15); Aspartate Amino Transferase 32 U/L (14-36); Bilirubin,Total 0.6 mg/dl (0.2-1.3); Blood Urea Nitrogen 20 mg/dl (7-17); Calcium 9.8 mg/dl (8.4-10.2); Carbon Dioxide 30 mmol/L (22.0-30.0); Estimated Glomerular Filt Rate 65 ml/min (>60); GFR (African American) 79 ML/MIN (>60); Globulin 2.9 g/dL (1.3-3.2); Glucose 134 mg/dl (74-100); Lipase 81 U/L (23-300); Total Protein,Serum 6.6 g/dl (6.3-8.2)
== END ==
LOC: LAB.DROPOF 10-04 07:07
PROVIDERS: PCP Nurse Practitioner; Visit Provider Nurse Practitioner
DX: K85.90 Acute pancreatitis without necrosis or infection, unspecified (principal); R10.13 Epigastric pain; K22.70 Barrett's esophagus without dysplasia; D64.9 Anemia, unspecified; R63.4 Abnormal weight loss; N10 Acute pyelonephritis; N39.0 Urinary tract infection, site not specified; B95.2 Enterococcus as the cause of diseases classified elsewhere
CPT/HCPCS: 80053; 82150; 83690; 85025; 87086; 87088; 87186

== ENCOUNTER 2022-10-19 13:21 | Emergency (ER) | payer OTHER, SELFPAY ==
[2022-10-19 13:21] VITALS: BP 108/79; PULSE 91; RESP 18; TEMP 36.6; O2SAT 100; BMI 17.4
--- NOTE | 2022-10-19 14:20 | EXP.UTC ---
Discharge Plan Disposition Patient Disposition: Left Against Medical Advice Condition: Undetermined Prescriptions Prescriptions: No Action chlorthalidone 25 mg tablet 25 mg PO DAILY Patient Comments: TAKE 1 TABLET BY MOUTH EVERY DAY IN THE MORNING cyclobenzaprine 10 mg tablet 10 mg PO TID PRN (Reason: muscle spasm) Qty: 30 0RF ferrous sulfate 325 mg (65 mg iron) tablet 325 mg PO TID Qty: 90 5RF aripiprazole 5 mg tablet 5 mg PO DAILY hydroxyzine pamoate 25 mg capsule 25 - 50 mg PO QID PRN (Reason: anxiety) ondansetron HCl 4 mg tablet 4 mg PO Q8H PRN (Reason: nausea and vomiting) Qty: 20 0RF ciprofloxacin HCl 500 mg tablet 500 mg PO BID Qty: 28 0RF paroxetine HCl [Paxil] 40 mg tablet 60 mg PO DAILY Qty: 135 1RF pantoprazole 40 mg tablet,delayed release (DR/EC) 40 mg PO DAILY Qty: 30 2RF zolpidem 10 mg tablet 10 mg PO HS Qty: 30 0RF sucralfate 1 GM/10 ML suspension 1 g PO TID PRN (Reason: Acid Reflux) isosorbide mononitrate 60 MG tablet extended release 24 hr 60 mg PO DAILY aspirin 81 MG tablet,chewable 81 mg PO DAILY metoprolol succinate 25 MG tablet extended release 24 hr 25 mg PO DAILY multivitamin 1 EACH capsule 1 ea PO DAILY atorvastatin 80 MG tablet 80 mg PO HS potassium chloride 20 mEq tablet,ER particles/crystals 20 meq PO BID Referrals Follow up/Referrals: Sravan Isaacs MD [Primary Care Provider] - See instructions Clinical Impressions Clinical Impression: Abdominal pain Qualifiers: Abdominal location: unspecified location Qualified Code(s): R10.9 - Unspecified abdominal pain Discharge ED Provider: Keisha Hurley [facility] General Stated complaint: ulcer pain Mode of Arrival: Ambulatory Source of Information: Patient Limitations: No Limitations Time Seen by Provider: 10/19/22 14:20 Description of Symptoms (Recalled from Triage Doc. by RN): Patient reports having a scope on Monday and told she has an ulcer. States they didn't tell her what to do for it and now she is having poain that is doubling her over. HEENT Symptoms (Recalled from RN notes): No Resp Symptoms (Recalled from RN notes): No Skin Symptoms (Recalled from RN notes): No MS Symptoms (Recalled from RN notes): No Functional Status (Recalled from RN notes): wnl History of Present Illness Provider Complaint: Patient state that she had surgery in in July where they clipped a couple ulcers in her stomach States that she was doing ok until she had a scope last Monday and then shortly after she started having pain in her upper abdomen into her back States that it doubles her over at times States that they didnt tell her what to do and she was suppose to have an appoitment there today but she did not feel up to going Related Data Home Medications Medication Instructions Recorded Confirmed aspirin 81 mg chewable tablet 81 mg PO DAILY HEART HEALTH 02/13/18 10/03/22 isosorbide mononitrate 60 mg 60 mg PO DAILY ANGINA 02/13/18 10/03/22 tablet,extended release 24 hr metoprolol succinate 25 mg 25 mg PO DAILY Hypertension 02/13/18 10/03/22 tablet,extended release 24 hr multivitamin 1 ea PO DAILY Supplement 02/13/18 10/03/22 sucralfate 100 mg/mL oral 1 g PO TID PRN Acid Reflux 02/13/18 10/03/22 suspension atorvastatin 80 mg tablet 80 mg PO HS Cholesterol 02/14/18 10/03/22 aripiprazole 5 mg tablet 5 mg PO DAILY . 11/25/21 10/03/22 hydroxyzine pamoate 25 mg capsule 25 - 50 mg PO QID PRN anxiety 11/25/21 10/03/22 chlorthalidone 25 mg tablet 25 mg PO DAILY . 06/08/22 10/03/22 potassium chloride 20 mEq 20 meq PO BID Supplement 08/15/22 10/03/22 tablet,extended release(part/cryst) Previous Rx's Medication Instructions Recorded ferrous sulfate 325 mg (65 mg 325 mg PO TID ANEMIA #90 tabs 11/25/21 iron) tablet cyclobenzaprine 10 mg tablet 10 mg PO TID PRN muscle spasm #30 06/08/22 tabs paroxetine HCl 40 mg tablet (Paxi
--- NOTE | 2022-10-19 14:47 | PC.NURSE ---
Patient came to hallway stating she wanted to leave. States she is just going to get a follow up with her PCP for tomorrow. patient signed ama paper.
[2022-10-19 14:49] VITALS: BP 108/79; PULSE 91; RESP 18; TEMP 36.6; O2SAT 100
== END 2022-10-19 14:49 | disposition left against medical advice (07) ==
PROVIDERS: Emergency Provider Nurse Practitioner; PCP Family Medicine
DX: R10.10 Upper abdominal pain, unspecified (principal); K22.70 Barrett's esophagus without dysplasia; I25.10 Atherosclerotic heart disease of native coronary artery without angina pectoris; D50.9 Iron deficiency anemia, unspecified; Z87.11 Personal history of peptic ulcer disease
CPT/HCPCS: 99212; 99213; G0463

== ENCOUNTER → 2022-11-08 11:00 | Outpatient (CLI) | payer OTHER, SELFPAY ==
[2022-11-08 20:41] LABS: Basophils # 0.1 K/mm3 (0-0.2); Basophils % 1.2 % (0.1-2.0); Eosinophils # 0.2 K/mm3 (0.0-0.4); Eosinophils % 3.4 % (0.1-12.0); Hematocrit 36.8 % (37.0-47.0); Hemoglobin 11.5 g/dL (12.2-16.2); Lymphocytes # 1.8 K/mm3 (0.7-4.5); Lymphocytes % 25.5 % (10-50); Mean Corpuscular HGB Conc 31.3 g/dL (31.8-35.4); Mean Corpuscular Hemoglobin 25.4 pg (27.0-31.2); Mean Corpuscular Volume 81.2 fl (81-99); Mean Platelet Volume 7.7 fl (7.4-10.4); Monocytes # 0.4 K/mm3 (0.1-1.0); Monocytes % 5.8 % (1.7-9.3); Neutrophils # 4.4 K/mm3 (1.8-7.8); Neutrophils % 64.2 % (37.0-80.0); Platelet Count 491 K/mm3 (142-424); Red Blood Count 4.53 M/mm3 (4.20-5.40); Red Cell Distribution Width 15.2 % (11.5-17.5); White Blood Count 6.9 K/mm3 (4.8-10.8)
[2022-11-08 21:00] LABS: Anion Gap 13.4 mEq/L (5-15); Blood Urea Nitrogen 21 mg/dl (7-17); Calcium 8.5 mg/dl (8.4-10.2); Carbon Dioxide 27 mmol/L (22.0-30.0); Chloride 101 mmol/L (98-107); Estimated Glomerular Filt Rate 74 ml/min (>60); GFR (African American) 90 ML/MIN (>60); Glucose 89 mg/dl (74-100); Potassium 3.4 mmoL/L (3.5-5.1); Sodium 138 mmol/L (136-145)
== END ==
PROVIDERS: PCP Family Medicine; Visit Provider Family Medicine
DX: E87.6 Hypokalemia (principal); Z87.19 Personal history of other diseases of the digestive system
CPT/HCPCS: 80048; 85025

== ENCOUNTER → 2022-11-23 12:00 | Outpatient (CLI) | payer OTHER, SELFPAY ==
[2022-11-23 18:34] LABS: Basophils % 0.4 % (0.1-2.0); Eosinophils # 0.1 K/mm3 (0.0-0.4); Eosinophils % 1.4 % (0.1-12.0); Hematocrit 41.8 % (37.0-47.0); Hemoglobin 12.7 g/dL (12.2-16.2); Lymphocytes # 1.5 K/mm3 (0.7-4.5); Lymphocytes % 15.7 % (10-50); Mean Corpuscular HGB Conc 30.5 g/dL (31.8-35.4); Mean Corpuscular Hemoglobin 24.7 pg (27.0-31.2); Mean Platelet Volume 8.2 fl (7.4-10.4); Monocytes # 0.5 K/mm3 (0.1-1.0); Monocytes % 4.8 % (1.7-9.3); Neutrophils # 7.4 K/mm3 (1.8-7.8); Neutrophils % 77.8 % (37.0-80.0); Platelet Count 522 K/mm3 (142-424); Red Blood Count 5.16 M/mm3 (4.20-5.40); Red Cell Distribution Width 14.7 % (11.5-17.5); White Blood Count 9.5 K/mm3 (4.8-10.8)
[2022-11-23 19:03] LABS: Alanine Aminotransferase 21 U/L (12-78); Albumin Level 3.7 g/dl (3.5-5.0); Albumin/Globulin Ratio 1.2 (1.1-1.8); Alkaline Phosphatase 108 U/L (38-126); Amylase 70 U/L (30-110); Anion Gap 13.6 mEq/L (5-15); Aspartate Amino Transferase 30 U/L (14-36); Bilirubin,Total 0.4 mg/dl (0.2-1.3); Blood Urea Nitrogen 17 mg/dl (7-17); Calcium 9.7 mg/dl (8.4-10.2); Carbon Dioxide 30 mmol/L (22.0-30.0); Chloride 98 mmol/L (98-107); Estimated Glomerular Filt Rate 87 ml/min (>60); GFR (African American) 105 ML/MIN (>60); Globulin 3.2 g/dL (1.3-3.2); Glucose 97 mg/dl (74-100); Lipase 92 U/L (23-300); Potassium 3.6 mmoL/L (3.5-5.1); Sodium 138 mmol/L (136-145); Total Protein,Serum 6.9 g/dl (6.3-8.2)
== END ==
PROVIDERS: PCP Nurse Practitioner; Visit Provider Nurse Practitioner
DX: R10.13 Epigastric pain (principal); E87.6 Hypokalemia; K85.90 Acute pancreatitis without necrosis or infection, unspecified; R10.9 Unspecified abdominal pain
CPT/HCPCS: 80053; 82150; 83690; 85025